=== PATIENT | male | born 1985 | race Caucasian/White ===

== ENCOUNTER 2016-11-28 10:34 | Emergency (ER) | payer OTHER ==
[~2016-11-28] VITALS: Ht 195.6 cm; Wt 112.7 kg
[2016-11-28 10:36] VITALS: TEMP 36.9; Ht 195.6 cm; Wt 112.7 kg
--- NOTE | 2016-11-28 10:56 | EMERGENCY ROOM VISIT NOTE ---
ED Visit Note First contact with patient: 10:48 CHIEF COMPLAINT: knee pain HISTORY OF PRESENT ILLNESS: This 31-year-old male patient presents to the emergency department ambulatory after sustaining an injury to the right knee one week ago when he slipped on the ice and fell. The patient denies any other injuries besides their knee. The patient denies swelling or bruising. There is pain diffusely over the anterior and lateral aspect of the knee. They rate the pain as severe and 10/10. The patient states they are able to walk on it. No numbness or tingling. No previous injuries to this knee. No ankle, foot or hip pain. REVIEW OF SYSTEMS: A 6 system review of systems was completed with positives and pertinent negatives listed in the HPI. ALLERGIES: Nickel MEDICATIONS: Patient denies PMH: Patient denies SOCIAL HISTORY: The patient lives locally. He is a smoker. PHYSICAL EXAM: Vital Signs: Reviewed Nurse's notes, vital signs stable. GENERAL : This is a 31-year-old male, no acute distress, but appears in pain, well- developed, well-nourished. MENTAL STATUS: Alert, oriented to person place and time, and cooperative. MUSCULOSKELETAL: The right knee is not swollen. There is no ecchymosis. There is no joint effusion present. The patient is tender diffusely over the knee. There is no joint line tenderness. The patella does not subluxate. Range of motion is intact. Strength of the quads and hamstrings is 5/5. Leo's is negative. Shemar's and Anterior Drawer tests are painful without laxity. There is pain without laxity with varus and valgus stressing. The foot and toes are warm and well-perfused. Dorsalis pedis pulse 2+. Sensation to pain and light touch is intact. Capillary refill less than 2 seconds. EMERGENCY DEPARTMENT COURSE: I examined the patient. X-rays of the right knee were reviewed by myself and read by radiology and reveal no fracture dislocation. The patient was placed in a knee immobilizer under my direction and the position was satisfactory. The patient was instructed on the use of crutches. The patient was discharged home in good condition. Of note, the patient's spoke separately with the RN and on several occasions stating that she just found out that her has been abusing opioids, crushing pills and snorting them. She states he has been obtaining the pills on the street. When I asked the patient if he is taking anything other than Tylenol or ibuprofen he declines. I recommend anti-inflammatories. I do not feel that prescribing narcotics is appropriate in this situation. DIAGNOSIS: Right knee pain DISCHARGE INSTRUCTIONS: Ice and elevate knee for swelling and pain. Wear knee immobilizer when up and about. Use crutches - minimal weight on foot. Ibuprofen 600 mg every 6 hrs for pain. Follow-up with [facility] for further evaluation and treatment - call for appointment. RIGHT KNEE 3 VIEWS CLINICAL HISTORY: right knee pain Right pain pain. Trauma. COMPARISON: None. DISCUSSION: The bones and joint spaces appear intact. There is no evidence of fracture, dislocation or bony disease. There is no evidence for soft tissue swelling. IMPRESSION: Negative study. Current/Historical Medications No Active Prescriptions or Reported Meds Allergies Coded Allergies: Nickel (Verified Allergy, Unknown, RASH, 11/28/16) Vital Signs Date Time Temp Pulse Resp B/P Pulse Ox O2 Delivery O2 Flow Rate FiO2 11/28/16 12:02 65 18 118/72 99 Room Air 11/28/16 10:36 36.9 89 18 138/87 95 Room Air Departure Information Impression Primary Impression: Knee pain Dispostion Home / Self-Care Condition GOOD Prescriptions No Active Prescriptions or Reported Meds Referrals No Doctor, Assigned (PCP) Clint Roman M.D. Patient Instructions Knee Pain, My [facility] Additional Instructions Ice and elevate knee for swelling and pain. Wear knee immobilizer when up and about. Use crutches - minimal weight on foot. Ibuprofen 600 mg every 6 hrs for pain. Follow-up with [facility] for further evaluation and treatment - call for appointment. Problem Qualifiers Primary Impression: Knee pain Laterality: right Chronicity: acute Qualified Codes: M25.561 - Pain in right knee
--- NOTE | 2016-11-28 11:32 | DIAGNOSTIC IMAGING REPORT ---
RIGHT KNEE 3 VIEWS CLINICAL HISTORY: right knee pain Right pain pain. Trauma. COMPARISON: None. DISCUSSION: The bones and joint spaces appear intact. There is no evidence of fracture, dislocation or bony disease. There is no evidence for soft tissue swelling. IMPRESSION: Negative study. Electronically signed by: Arben Matt M.D. 11/28/2016 11:31 AM Dictated Date/Time: 11/28/2016 11:31 AM
[2016-11-28 12:02] VITALS: BP 118/72; PULSE 65; O2SAT 99
[2016-12-15] MEDS ORDERED: OXYC-88 PO (19:57)
[2016-12-15] MEDS ORDERED: IBUP-1451 PO (19:57)
[2016-12-15] MEDS ORDERED: SNK PO (19:57)
[2016-12-15] MEDS ORDERED: DRGTP25 TD (19:57)
[2016-12-15] MEDS ORDERED: LEVO1TAB35 PO (19:57)
== END 2016-11-28 12:15 | disposition home or self-care (01) ==
LOC: C.EDB 10:35 → C.EDC 12:15
DX: M25.561 Pain in right knee (principal); F17.200 Nicotine dependence, unspecified, uncomplicated

== ENCOUNTER → 2016-11-29 | Outpatient (CLI) | payer OTHER ==
[~2016-11-29] MED LIST: CEPH500C PO; DRGTP25 TD; HYDR-5688 PO; IBUP-1050 PO; IBUP-1451 PO; LEVO1TAB35 PO; NAPR-1169 PO; OXYC-106 PO; OXYC-88 PO; SNK PO
== END | disposition home or self-care (01) ==
LOC: C.LAB 18:14
DX: Z02.83 Encounter for blood-alcohol and blood-drug test (principal)

== ENCOUNTER 2016-12-08 13:53 | Emergency (ER) | payer OTHER ==
[~2016-12-08] VITALS: Ht 195.6 cm; Wt 114.9 kg
[2016-12-08 13:57] VITALS: TEMP 36.9; Ht 195.6 cm; Wt 114.9 kg
[2016-12-08] MEDS ORDERED: HYDROCODONE/ACETAMOPHEN 5/325MG TAB PO ONE (15:00)
[2016-12-08] MEDS ORDERED: DIPHTHERIA/TETANUS/PERTUSSIS 0.5 ML SYR/VIAL IM. ONE (15:00)
--- NOTE | 2016-12-08 15:17 | DIAGNOSTIC IMAGING REPORT ---
RIGHT WRIST MIN 3 VIEWS ROUTINE CLINICAL HISTORY: puncture wound R wrist Right trauma COMPARISON: None. DISCUSSION: The bones and joint spaces appear intact. There is no evidence of fracture, dislocation or bony disease. There is no evidence for soft tissue swelling. IMPRESSION: Negative study. No evidence for radiopaque foreign body Electronically signed by: Arben Matt M.D. 12/08/2016 3:16 PM Dictated Date/Time: 12/08/2016 3:15 PM
[2016-12-08] MEDS ORDERED: HYDR-5688 PO (15:40)
[2016-12-08] MEDS ORDERED: CEPH500C PO (15:40)
[2016-12-08 15:54] VITALS: BP 124/69; PULSE 60; O2SAT 100
--- NOTE | 2016-12-08 17:09 | EMERGENCY ROOM VISIT NOTE ---
ED Visit Note First contact with patient: 14:36 CHIEF COMPLAINT: Puncture wound of the right wrist HISTORY OF PRESENT ILLNESS: This 31-year-old white male patient was taking apart a rabbit cage today and attempted to knock a piece of wood apart by striking it with his palm. There was a screw sticking out of the wood that he did not see. The screw punctured through his leather glove and into the volar aspect of his wrist. Right-hand dominant. He had immediate onset of pain. He notes pain that radiates from the fingers to the mid forearm. No numbness or tingling. The patient doesn't think there is anything in the wound. He believes his tetanus is out of date. He did cleanse the wound with soap and water several times while at home. REVIEW OF SYSTEM: HEENT: No dizziness, visual problems, hearing loss, or tinnitus. There is no difficulty swallowing and no oral lesions are present. PULMONARY: No cough, shortness of breath, sputum production or hemoptysis. CARDIOVASCULAR: No chest pain, palpitations, shortness of breath or peripheral edema. GASTROINTESTINAL: No diarrhea, constipation, nausea, vomiting, or abdominal pain. GENITOURINARY: No dysuria, frequency, urgency or nocturia. NEUROLOGIC: No weakness, muscle tenderness, epilepsy or history of neurological problems. MUSCULOSKELETAL: No history of joint tenderness/swelling. No history of arthritis or arthralgias. SKIN: No rashes or lesions. ENDOCRINE: No history of diabetes, thyroid disorders, or abnormal hair growth. PMH: Significant for bronchitis Previous surgeries: None. Current medications: None Allergies: NKDA Family history: Significant for diabetes, heart disease, hypertension, cancer, lung disease, gallbladder disease, and kidney stones. Parents are living. SOCIAL HISTORY: Patient lives at home with his and children. Employed. Positive tobacco use, positive EtOH use. PHYSICAL EXAM: Vital Signs: Reviewed Nurse's notes. Afebrile. General: Well- developed, well-nourished, young white male, in obvious discomfort. No acute distress. Sitting on a bed. Alert and oriented. Skin: There is a small puncture wound on the volar aspect of the right wrist. No foreign material is seen in the wound. The epidermis was lifted off the puncture site and a small piece of fat was protruding. No foreign material could be seen there. Musculoskeletal: Right hand evaluation reveals full range of motion of the digits for flexion, extension, and abduction. Motor function of all fingers causes some discomfort in the volar aspect of the wrist. He has intact flexion and extension of the wrist but also notes that it causes discomfort. This radiates into the mid forearm. No loss of strength. He has no discoloration or swelling over the dorsal wrist. Neurologic: Gross sensation is intact across all digits by soft touch. Radial, median, and ulnar nerve functions are clearly intact. He describes a slight decrease in sensation across the thumb and index finger compared to the rest of the digits. Peripheral pulses are 2+. Data: Radiographic imaging obtained today of the wrist was read by radiology. No evidence for fracture or foreign body. EMERGENCY DEPARTMENT COURSE: Patient was educated regarding today's findings. Conservative care measures were discussed. Radiographic imaging was obtained. Tetanus immunization was given using Adacel IM. Wound has been cleansed. Bacitracin dressing was applied. Galeano dressing was applied by me with a volar splint. He will leave this in place for 36 hours. Keep it dry. He was started on Keflex 500 mg 4 times a day 7 days. Tylenol and Motrin every 6 hours as needed for mild discomfort. He did receive a tablet of Richmond 5 mg while in the ED due to his pain. Additional prescription was provided to be used every 6 hours as needed for severe pain. Driving precautions were given. DIAGNOSIS: Puncture wound of the right wrist DISCHARGE INSTRUCTIONS: Observe the area closely for signs of infection such as redness, swelling, increasing pain, streaking, or drainage. Return here or go to your own doctor if any of these occur for consideration of IV antibiotic treatment. He was reassured that I do not suspect retained metallic foreign body. Current/Historical Medications Scheduled Cephalexin Monohydrate (Keflex), 500 MG PO QID Scheduled PRN Hydrocodone/Acetaminophen 5MG/325MG (Richmond 5MG/325MG), 1 TABLET PO Q6H PRN for Pain Allergies Coded Allergies: Nickel (Verified Allergy, Unknown, RASH, 12/08/16) Vital Signs Date Time Temp Pulse Resp B/P Pulse Ox O2 Delivery O2 Flow Rate FiO2 12/08/16 15:54 60 18 124/69 100 Room Air 12/08/16 13:57 36.9 80 18 120/77 99 Room Air Medications Administered Medications (Trade) Dose Ordered Sig/Ulises Route Start Time Stop Time Status Last Admin Dose Admin Diphtheria/ Pertussis/Tetanus Vacc (Adacel Inj) 0.5 ml ONCE ONCE IM. 12/08/16 15:00 12/08/16 15:01 DC 12/08/16 15:16 0.5 ML Acetaminophen/ Hydrocodone Bitart (Richmond 5/325 Tab) 1 tab ONE ONCE PO 12/08/16 15:00 12/08/16 15:01 DC 12/08/16 15:15 1 TAB Departure Information Impression Primary Impression: Puncture wound of right wrist without foreign body Dispostion Home / Self-Care Condition GOOD Prescriptions Hydrocodone/Acetaminophen 5MG/325MG (Richmond 5MG/325MG) Tab 1 TABLET PO Q6H Y for Pain, #10 TAB For Initial Treatment Prov: Prakash Murillo,P.A. 12/08/16 Cephalexin Monohydrate (Keflex) 500 Mg Cap 500 MG PO QID for 7 Days, #28 CAP Prov: Prakash Murillo,P.A. 12/08/16 Forms WORK / SCHOOL INSTRUCTIONS, HOME CARE DOCUMENTATION FORM, SPECIAL NARCOTICS INSTRUCTIONS, MOTRIN USE, TYLENOL USE, IMPORTANT VISIT INFORMATION Patient Instructions My [facility], ED Wound Puncture General Additional Instructions Leave the Galeano dressing in place for 36 hours and then remove Keep the splint dry Ice and elevate frequently to reduce pain and swelling Tylenol and Motrin every 6 hours as needed for discomfort Gentle finger motion daily Return to the ED or follow-up with your PCP for any signs of infection, including purulent drainage, streaking on the arm, or fever Keflex one pill 4 times a day 7 days Substituted Richmond one tablet every 6 hours as needed for more severe pain Starting on Friday, cleanse daily with soap and water and keep the area covered with antibiotic ointment
[2016-12-15] MEDS ORDERED: IBUP-1451 PO (19:57)
[2016-12-15] MEDS ORDERED: LEVO1TAB35 PO (19:57)
[2016-12-15] MEDS ORDERED: OXYC-88 PO (19:57)
[2016-12-15] MEDS ORDERED: SNK PO (19:57)
[2016-12-15] MEDS ORDERED: DRGTP25 TD (19:57)
== END 2016-12-08 16:13 | disposition home or self-care (01) ==
LOC: C.EDB 13:54 → C.EDD 16:13
DX: S61.501A Unspecified open wound of right wrist, initial encounter (principal); W22.8XXA Striking against or struck by other objects, initial encounter; F17.200 Nicotine dependence, unspecified, uncomplicated; Z23 Encounter for immunization

== ENCOUNTER 2016-12-09 17:26 | Inpatient (IN) | payer OTHER ==
[~2016-12-09] VITALS: Ht 195.6 cm; Wt 115.0 kg
[~2016-12-09 17:26] MED LIST changes: -DRGTP25 TD; -IBUP-1050 PO; -IBUP-1451 PO; -LEVO1TAB35 PO; -NAPR-1169 PO; -OXYC-106 PO; -OXYC-88 PO; -SNK PO
[2016-12-09] MEDS ORDERED: CEFTRIAXONE SOD INJ 1 GM ADDVIAL IV STA (18:42)
[2016-12-09] MEDS ORDERED: VANCOMYCIN INJ 2,200 MG in SODIUM CHLORIDE 0.9% 250ML 250 ML IV STA (18:42)
[2016-12-09] MEDS ORDERED: VANCOMYCIN INJ 2,200 MG in SODIUM CHLORIDE 0.9% 500ML 500 ML IV ONE (19:00)
[2016-12-09 19:05] LABS: BASO % 0.2 %; BASO ABS # 0.02 K/uL (0-0.2); COMPLETE YES; EOS % 2.5 %; HEMATOCRIT 42.6 % (42-52); IG% 0.3 %; LYMPH % 24.5 %; LYMPH ABS # 3.25 K/uL (1.2-3.4); MEAN CELL VOLUME 85.7 fL (80-100); MEAN PLATELET VOLUME 10.9 fL (7.4-10.4); MONO % 11.2 %; NEUT % 61.3 %; PLATELET COUNT 177 K/uL (130-400); RED BLOOD COUNT 4.97 M/uL (4.7-6.1); WHITE BLOOD COUNT 13.26 K/uL (4.8-10.8)
[2016-12-09 19:32] LABS: BUN/CREATININE RATIO 15.9 (10-20); CALCIUM 8.8 mg/dl (8.5-10.1); CREATININE 1.1 mg/dl (0.60-1.40); POTASSIUM 3.9 mmol/L (3.5-5.1)
[2016-12-09] MEDS ORDERED: MoRPHine SULFATE 10 MG/ML CARP/VIAL IV STA (19:53)
[2016-12-09] MEDS ORDERED: MoRPHine SULFATE 4 MG/ML 1 ML CARP\\VIAL ONE (20:01)
[2016-12-09] MEDS ORDERED: MoRPHine SULFATE 2 MG/ML CARP ONE (20:01)
[2016-12-09] MEDS ORDERED: MoRPHine SULFATE 2 MG/ML CARP IV PRN (21:00)
[2016-12-09] MEDS ORDERED: ONDANSETRON INJ 2 MG/ML 2 ML VIAL IV PRN (21:00)
[2016-12-09] MEDS ORDERED: ACETAMINOPHEN 325 MG TAB PO PRN (21:00)
[2016-12-09] MEDS ORDERED: LORAZEPAM 2 MG/ML 1 ML VIAL IV PRN (21:00)
[2016-12-09] MEDS ORDERED: CEFTRIAXONE SOD INJ 1 GM in DEXTROSE 5% ADD-VANTAGE 50ML 50 ML IV SCH (21:00)
[2016-12-09] MEDS ORDERED: PROMETHAZINE HCL INJ 12.5 MG in SODIUM CHLORIDE 0.9% 50ML 50 ML IV PRN (21:00)
[2016-12-09] MEDS ORDERED: MAGNESIUM HYDROXIDE SUSP 30 ML UDC PO PRN (21:00)
[2016-12-09] MEDS ORDERED: DiphenhydrAMINE HCL 50 MG/ML VIAL IV PRN (21:00)
[2016-12-09] MEDS ORDERED: ZOLPIDEM TARTRATE 5 MG TAB PO PRN (21:00)
[2016-12-09] MEDS ORDERED: ALUMINUM/MAGNESIUM/SIMETH (MAALOX MAX) 30 ML UDC PO PRN (21:00)
[2016-12-09] MEDS ORDERED: VANCOMYCIN CONSULT ACTIVE PRN (21:27)
[2016-12-09] MEDS ORDERED: PIPERACILL/TAZOBAC IV 3.375 GM in DEXTROSE 5% 100ML 100 ML IV STA (22:12)
[2016-12-09] MEDS: NSS + 20MEQ KCL 1000ML 1,000 ML IV SCH (22:31)
[2016-12-09] MEDS: MoRPHine SULFATE 4 MG/ML 1 ML CARP\\VIAL IV PRN (22:33)
[2016-12-09] MEDS ORDERED: PIPERACILL/TAZOBAC CONSULT ACTIVE PRN (22:45)
--- NOTE | 2016-12-09 22:47 | EMERGENCY ROOM VISIT NOTE ---
History Report prepared by Alphonso: Narayan Martin Under the Supervision of: Dr. Lg Biggs M.D. First contact with patient: 18:33 Chief Complaint: WOUND INFECTION Stated Complaint: PUNCTURE RT WRIST, RED, SWOLLEN, FEVER Nursing Triage Summary: Here for wound recheck that ot worse, patient reports severe pain in his hand and fingers with reddness runnig up his inside of his wrist. History of Present Illness The patient is a 31 year old male who presents to the Emergency Room with complaints of severe right wrist pain starting yesterday and worsening today. Yesterday, the patient was taking apart an old board when he hit it with his hand and a metal screw sunk into his hand. He does not think any wood entered the wound. He was evaluated at the Emergency Room yesterday. He had an x-ray yesterday which did not show any metal in the wound. He was placed on Keflex and was discharged home. His last tetanus shot was yesterday. Today, the patient starting having redness on the right arm. He has worsening pain with movement. He also started having a fever with a temperature of 102 degrees Fahrenheit today. The patient has been taking Aleve and Ibuprofen without relief. Pt denies headache, change in vision, cough, chest pain, shortness of breath, nausea, vomiting, diarrhea, pain with urination, and melena. Source of History: patient Onset: yesterday Position: wrist (right) Symptom Intensity: severe Modifying Factors (Worsening): movement Associated Symptoms: + fevers, No SOB, No chest pain, No diarrhea, No headache, No nausea, No urinary symptoms, No vomiting Review of Systems See HPI for pertinent positives & negatives. A total of 10 systems reviewed and were otherwise negative. Past Medical & Surgical Medical Problems: (1) Acute lymphangitis (2) Anxiety State Nos (3) Cellulitis of right upper extremity (4) Tobacco use disorder Surgical Problems: (1) No history of previous surgery Family History Cancer Diabetes mellitus Gallbladder disease Heart disease Hypertension Lung disease Social History Smoking Status: Never Smoker Alcohol Use: none Marital Status: Occupation Status: employed Current/Historical Medications Scheduled Cephalexin Monohydrate (Keflex), 500 MG PO QID Scheduled PRN Hydrocodone/Acetaminophen 5MG/325MG (Badger 5MG/325MG), 1 TABLET PO Q6H PRN for Pain Allergies Coded Allergies: Nickel (Verified Allergy, Unknown, RASH, 12/08/16) Physical Exam Vital Signs Date Time Temp Pulse Resp B/P Pulse Ox O2 Delivery O2 Flow Rate FiO2 12/09/16 20:11 79 18 135/86 97 Room Air 12/09/16 19:15 76 18 134/75 97 Room Air 12/09/16 17:46 37.2 94 18 146/87 98 Room Air Physical Exam GENERAL: Sitting on the edge of bed, disheveled, nontoxic. EYE EXAM: normal conjunctiva, PERRL and EOM's grossly intact OROPHARYNX: no exudate, no erythema, lips, buccal mucosa, and tongue normal and mucous membranes are moist LUNGS: Clear to auscultation. Normal chest wall mechanics HEART: no murmurs, S1 normal and S2 normal ABDOMEN: abdomen soft, non-tender, normo-active bowel sounds, no masses, no rebound or guarding. BACK: Back is symmetrical on inspection and there is no deformity, no midline tenderness, no CVA tenderness. SKIN: no rashes and no bruising UPPER EXTREMITIES: Puncture wounds in the middle of right wrist on the palmar surface measuring 1 cm by 1 cm and surrounding 9 cm area of erythema tracking up the arm, moderate tenderness, radial pulses are 2/4 bilaterally, acute tenderness/swelling on the dorsal aspect of fifth metacarpal. Faint erythema tracking up to just distal of elbow. LOWER EXTREMITIES: No pitting edema. NEURO EXAM: Normal sensorium. Medical Decision & Procedures Laboratory Results 12/09/16 18:54 Red Blood Count 4.97, Mean Corpuscular Volume 85.7, Mean Corpuscular Hemoglobin 30.0, Mean Corpuscular Hemoglobin Concent 35.0, Mean Platelet Volume 10.9, Neutrophils (%) (Auto) 61.3, Lymphocytes (%) (Auto) 24.5, Monocytes (%) (Auto) 11.2, Eosinophils (%) (Auto) 2.5, Basophils (%) (Auto) 0.2, Neutrophils # (Auto ) 8.13, Lymphocytes # (Auto) 3.25, Monocytes # (Auto) 1.49, Eosinophils # (Auto ) 0.33, Basophils # (Auto) 0.02 12/09/16 18:54 Test 12/09/16 18:54 White Blood Count 13.26 K/uL (4.8-10.8) Red Blood Count 4.97 M/uL (4.7-6.1) Hemoglobin 14.9 g/dL (14.0-18.0) Hematocrit 42.6 % (42-52) Mean Corpuscular Volume 85.7 fL (80-100) Mean Corpuscular Hemoglobin 30.0 pg (25-34) Mean Corpuscular Hemoglobin Concent 35.0 g/dl (32-36) Platelet Count 177 K/uL (130-400) Mean Platelet Volume 10.9 fL (7.4-10.4) Neutrophils (%) (Auto) 61.3 % Lymphocytes (%) (Auto) 24.5 % Monocytes (%) (Auto) 11.2 % Eosinophils (%) (Auto) 2.5 % Basophils (%) (Auto) 0.2 % Neutrophils # (Auto) 8.13 K/uL (1.4-6.5) Lymphocytes # (Auto) 3.25 K/uL (1.2-3.4) Monocytes # (Auto) 1.49 K/uL (0.11-0.59) Eosinophils # (Auto) 0.33 K/uL (0-0.5) Basophils # (Auto) 0.02 K/uL (0-0.2) RDW Standard Deviation 42.9 fL (36.4-46.3) RDW Coefficient of Variation 13.7 % (11.5-14.5) Immature Granulocyte % (Auto) 0.3 % Immature Granulocyte # (Auto) 0.04 K/uL (0.00-0.02) Anion Gap 12.0 mmol/L (3-11) Est Creatinine Clear Calc Drug Dose 139.4 ml/min Estimated GFR () 104.6 Estimated GFR (Non- 90.2 BUN/Creatinine Ratio 15.9 (10-20) Calcium Level 8.8 mg/dl (8.5-10.1) Laboratory results per my review. Medications Administered Medications (Trade) Dose Ordered Sig/Luises Route Start Time Stop Time Status Last Admin Dose Admin Ceftriaxone Sodium 1 gm 1 gm NOW STAT IV 12/09/16 18:42 12/09/16 18:44 DC 12/09/16 19:07 1 GM Vancomycin HCl/ Sodium Chloride (Vancomycin Inj/ Nss 500ml) 544 ml @ 200 mls/hr 1900 ONCE IV 2/20/17 19:00 12/09/16 21:43 DC 12/09/16 19:07 200 MLS/HR Morphine Sulfate (MoRPHine SULFATE INJ) 2 mg STK-MED ONCE .ROUTE 12/09/16 20:01 12/09/16 20:03 DC 12/09/16 20:06 2 MG Morphine Sulfate (MoRPHine SULFATE INJ) 4 mg STK-MED ONCE .ROUTE 12/09/16 20:01 12/09/16 20:03 DC 12/09/16 20:05 4 MG ED Course ED COURSE: Vital signs were reviewed and showed normal. The patients medical record was reviewed The above diagnostic studies were performed and reviewed. ED treatments and interventions as stated above. 1833: The patient was evaluated in room A10. A complete history and physical examination was performed. 184: Rocephin Inj 1 gm IV 1900: Vancomycin HCl 2200 mg/Sodium Chloride 544 ml @ 200 mls/hr IV 2019: [facility] the [facility] Upon reevaluation, the patient is resting comfortably. I discussed my findings with the patient and he understands and agrees with the treatment plan. Based on the patients age, coexisting illnesses, exam and lab findings the decision to treat as an inpatient was made. The patient remained stable while under my care. The patient will be evaluated for further management. Medical Decision Differential diagnosis: Etiologies such as cellulitis, abscess, MRSA infection, DVT, necrotizing fasciitis, dermatitis, drug eruption, as well as others were entertained. Patient is a 31-year-old male who presents the ER for severe pain in his right hand. He is right-handed dominant and he hit his wrist on a nail yesterday. Since then he has been having severe pain and increased swelling. He has been on antibiotics. Significant pain with flexion-extension of the wrist. He also has moderate pain with grasp. Erythema tracking along the flexor tendon sheath proximally with faint erythema going to the mid to proximal forearm. Patient has had fevers of 102 at home. He is currently on antibiotics. IV was established and is given additional antibiotics along with fluids. He was given IV morphine with improvement of his pain. He is admitted to internal medicine for IV antibiotics and evaluation by orthopedics in the morning. Labs were remarkable for a leukocytosis of 13,000. Consults Time Called: 2014 Consulting Physician[facility] Returned Call: 2018 I discussed the patient's case [facility] Impression Primary Impression: Cellulitis Additional Impression: Infection of flexor tendon sheath Scribe Attestation The scribe's documentation has been prepared under my direction and personally reviewed by me in its entirety. I confirm that the note above accurately reflects all work, treatment, procedures, and medical decision making performed by me. Departure Information Dispostion Being Evaluated By Hospitalist Referrals Jose Francisco Ramirez M.D. (PCP) Patient Instructions My [facility] Problem Qualifiers Primary Impression: Cellulitis Site of cellulitis: extremity Site of cellulitis of extremity: upper extremity Laterality: right Qualified Codes: L03.113 - Cellulitis of right upper limb
[2016-12-09 23:07] VITALS: BP 110/64; PULSE 67; TEMP 36.8; O2SAT 98
[2016-12-09 23:21] VITALS: BP 114/74; PULSE 74; TEMP 37.1; Ht 195.6 cm; Wt 115.0 kg
[2016-12-10] MEDS: MoRPHine SULFATE 4 MG/ML 1 ML CARP\\VIAL IV PRN ×5 (01:22→23:09)
[2016-12-10] MEDS: VANCOMYCIN INJ 1,600 MG in SODIUM CHLORIDE 0.9% 500ML 500 ML IV SCH ×3 (01:22→18:28)
--- NOTE | 2016-12-10 01:43 | History and Physical ---
History & Physical Date & Time of Service: Dec 10, 2016 at 01:35 Chief Complaint: Puncture Rt Wrist, Red, Swollen, Fever Primary Care Physician: Jose Francisco Ramirez M.D. History of Present Illness Source: patient, spouse The patient is a 31-year-old male who presents emergency department with worsening severe right wrist pain and swelling since he was seen at the emergency department yesterday. He had sustained a puncture wound injury to his right wrist from a old screw. He had been given a tetanus shot yesterday and had an x-ray which did not show any metal in the wound. He is placed on Keflex and discharged to home. He did develop temperature to 102F today, in spite of taking Aleve and ibuprofen. He has started develop some generalized muscle aches and fatigue today as well. Family History Cancer Diabetes mellitus Gallbladder disease Heart disease Hypertension Lung disease Social History Smoking Status: Current Every Day Smoker Smokeless Tobacco Use: No Alcohol Use: none Drug Use: none Marital Status: Housing status: lives with family Occupational Status: employed Multi-Drug Resistant Organisms History of MDRO: No Allergies Coded Allergies: Nickel (Verified Allergy, Unknown, RASH, 12/08/16) Home Medications Scheduled Cephalexin Monohydrate (Keflex), 500 MG PO QID Scheduled PRN Hydrocodone/Acetaminophen 5MG/325MG ([place] 5MG/325MG), 1 TABLET PO Q6H PRN for Pain Review of Systems The patient denies chest pain, palpitations, shortness of breath, cough, lower extremity swelling, vision change, hearing change, sore throat, weight change, fatigue, nausea, vomiting, abdominal pain, pelvic pain, blood in urine or stool , dysuria, urinary frequency or urgency, lightheadedness, dizziness, headache, memory loss, rash, abnormal bruising or bleeding, imbalance, numbness or tingling in legs, arthralgias or myalgias, back or neck pain, night sweats, or allergy symptoms. The review of systems is otherwise negative other than for that already noted above, and at least 10 systems have been reviewed. Physical Exam Vital Signs Date Time Temp Pulse Resp B/P Pulse Ox O2 Delivery O2 Flow Rate FiO2 12/09/16 23:21 37.1 74 16 114/74 Room Air 12/09/16 23:07 36.8 67 14 110/64 98 Room Air 12/09/16 21:53 37.2 84 18 131/85 97 12/09/16 21:20 84 18 131/85 97 Room Air 12/09/16 20:11 79 18 135/86 97 Room Air 12/09/16 19:15 76 18 134/75 97 Room Air 12/09/16 17:46 37.2 94 18 146/87 98 Room Air The patient is awake, well-developed and adequately nourished, alert and oriented 3, normocephalic and atraumatic, lying in bed and in no acute distress. HEENT--PERRL, EOMI, mucous membranes and oropharynx dry. Neck--supple, no JVD or bruits, thyroid normal, trachea midline, no adenopathy. Heart--normal S1 and S2, no extra beats, no murmurs, rubs or gallops. Lungs--clear bilaterally with good air movement, no respiratory distress, no accessory muscle use. Abdomen--normal bowel sounds and soft, nontender and nondistended, no hernias or masses, no organomegaly. Extremities--lower extremities show no cyanosis, clubbing or edema. There are good distal pulses b/l. Right upper extremity shows puncture wound palmaris surface of wrist, with surrounding erythema and warmth, and redness extending along medial aspect of the forearm to the elbow. Dermatologic--normal except as noted above. Neurologic--cranial nerves II through XII grossly intact, motor and sensory examination normal. Rheumatologic--right wrist is swollen with decreased flexion ability. Psychiatric--normal affect. Diagnostics Laboratory Results Results Past 24 Hours Test 12/09/16 18:54 Range/Units White Blood Count 13.26 4.8-10.8 K/uL Red Blood Count 4.97 4.7-6.1 M/uL Hemoglobin 14.9 14.0-18.0 g/dL Hematocrit 42.6 42-52 % Mean Corpuscular Volume 85.7 80-100 fL Mean Corpuscular Hemoglobin 30.0 25-34 pg Mean Corpuscular Hemoglobin Concent 35.0 32-36 g/dl Platelet Count 177 130-400 K/uL Mean Platelet Volume 10.9 7.4-10.4 fL Neutrophils (%) (Auto) 61.3 % Lymphocytes (%) (Auto) 24.5 % Monocytes (%) (Auto) 11.2 % Eosinophils (%) (Auto) 2.5 % Basophils (%) (Auto) 0.2 % Neutrophils # (Auto) 8.13 1.4-6.5 K/uL Lymphocytes # (Auto) 3.25 1.2-3.4 K/uL Monocytes # (Auto) 1.49 0.11-0.59 K/uL Eosinophils # (Auto) 0.33 0-0.5 K/uL Basophils # (Auto) 0.02 0-0.2 K/uL RDW Standard Deviation 42.9 36.4-46.3 fL RDW Coefficient of Variation 13.7 11.5-14.5 % Immature Granulocyte % (Auto) 0.3 % Immature Granulocyte # (Auto) 0.04 0.00-0.02 K/uL Sodium Level 141 136-145 mmol/L Potassium Level 3.9 3.5-5.1 mmol/L Chloride Level 107 98-107 mmol/L Carbon Dioxide Level 22 21-32 mmol/L Anion Gap 12.0 3-11 mmol/L Blood Urea Nitrogen 18 7-18 mg/dl Creatinine 1.10 0.60-1.40 mg/dl Est Creatinine Clear Calc Drug Dose 139.4 ml/min Estimated GFR () 104.6 Estimated GFR (Non- 90.2 BUN/Creatinine Ratio 15.9 10-20 Random Glucose 85 70-99 mg/dl Calcium Level 8.8 8.5-10.1 mg/dl Diagnostic Radiology Patient Name: LEIF CONNELL Unit Number: [id number] Dictated: 12/08/161514 Transcribed: 12/08/161514 MS Printed Date/Time: [~ rep prt dt]/[~ rep prt tm] [~ rep ct labl] - [~ rep ct ivnm] [facility] [place] [address] Dictated: 12/08/161514 Transcribed: 12/08/161514 MS Printed Date/Time: [~ rep prt dt]/[~ rep prt tm] [~ rep ct labl] - [~ rep ct ivnm] RIGHT WRIST MIN 3 VIEWS ROUTINE CLINICAL HISTORY: puncture wound R wrist Right trauma COMPARISON: None. DISCUSSION: The bones and joint spaces appear intact. There is no evidence of fracture, dislocation or bony disease. There is no evidence for soft tissue swelling. IMPRESSION: Negative study. No evidence for radiopaque foreign body Electronically signed by: Arben Matt M.D. 12/08/2016 3:16 PM Dictated Date/Time: 12/08/2016 3:15 PM The status of this report is Signed. Draft = Not yet reviewed or approved by Radiologist. Signed = Reviewed and approved by Radiologist. <AttendingPhy></AttendingPhy> <FamilyPhy>Jose Francisco Ramirez M.D.</FamilyPhy> < PrimaryPhy>Jose Francisco Ramirez M.D.</PrimaryPhy> <UnitNumber>[id number]</UnitNumber > <VisitNumber>[id number]</VisitNumber> <PatientName>LEIF CONNELL REY</ PatientName> <DateOfBirth>1985</DateOfBirth> <Location>[facility]</Location> < ServiceDate>12/08/16</ServiceDate> <MNE>ESINDI</MNE> <OrderingPhy>Murillo Cory D PA-C</OrderingPhy> <OrderingPhyMNE>f rep ord dr pina</OrderingPhyMNE> < DictatingPhyMNE>f rep dict dr pina</DictatingPhyMNE> <CCListMNE>f rep ct yovani</ CCListMNE> <AdmittingPhyMNE>f pt admit dr pina</AdmittingPhyMNE> <AttendingPhyMNE >f pt attend dr pina</AttendingPhyMNE> <ConsultingPhyMNE>f pt consult dr pina</ConsultingPhyMNE> <FamilyPhyMNE>f pt fam dr pina</FamilyPhyMNE> <OtherPhyMNE>f pt other dr pina</OtherPhyMNE> < PrimaryPhyMNE>f pt prim care dr pina</PrimaryPhyMNE> <ReferringPhyMNE>f pt referring dr pina</ReferringPhyMNE> Impression Assessment and Plan Right wrist cellulitis with ascending lymphangitis status post puncture wound with old metal screw--the patient will be admitted to the medical surgical floor. He'll be placed on vancomycin IV per renal dosing, and Zosyn 3.375 mg IV every [address] consult [address]. Grider from [facility], and the patient will be kept nothing by mouth after midnight in case a procedure is needed tomorrow. We'll continue hydrocodone/acetaminophen 5/325, 1 tablet by mouth every [address] on normal saline with potassium chloride 20 mEq 100 mils per hour. Zofran 4 mg IV every 6 hours when necessary , and morphine sulfate 2-4 mg IV every 2 hours when necessary. His right arm should be kept elevated to heart level to prevent edema. Level of Care Med/Surg Advanced Directives Existing Advance Directive: No Existing Living Will: No Existing Power of Automatic Developer: No Resuscitation Status FULL RESUSCITATION VTE Prophylaxis VTE Risk Assessment Done? Y/N: Yes Risk Level: Moderate Given or contraindicated: SCD's Social Service Consult None Apply
[2016-12-10] MEDS: PIPERACILL/TAZOBAC IV 3.375 GM in DEXTROSE 5% 100ML IV SCH ×3 (04:39→23:27)
[2016-12-10 07:35] LABS: BASO % 0.2 %; BASO ABS # 0.02 K/uL (0-0.2); COMPLETE YES; EOS % 3.3 %; HEMATOCRIT 38.9 % (42-52); IG% 0.3 %; LYMPH % 21.3 %; LYMPH ABS # 2.04 K/uL (1.2-3.4); MEAN CELL VOLUME 89.2 fL (80-100); MEAN CORPUSCULAR HEMOGLOBIN 30.3 pg (25-34); MEAN CORPUSCULAR HGB CONC 33.9 g/dl (32-36); MEAN PLATELET VOLUME 11.3 fL (7.4-10.4); MONO % 12.3 %; NEUT % 62.6 %; PLATELET COUNT 148 K/uL (130-400); RED BLOOD COUNT 4.36 M/uL (4.7-6.1)
[2016-12-10 07:53] VITALS: BP 112/71; PULSE 74; TEMP 36.7; O2SAT 100
[2016-12-10 08:04] LABS: BUN/CREATININE RATIO 11.2 (10-20); CALCIUM 8.4 mg/dl (8.5-10.1); CREATININE 0.94 mg/dl (0.60-1.40); MAGNESIUM 2.1 mg/dl (1.8-2.4); POTASSIUM 4.4 mmol/L (3.5-5.1)
[2016-12-10] MEDS: NSS + 20MEQ KCL 1000ML 1,000 ML IV SCH ×2 (08:09→18:29)
--- NOTE | 2016-12-10 09:21 | Pharmacy Progress Note ---
Pharmacy Antibiotic Consult Date of Service: Dec 10, 2016. Pharmacy Dosing Scope Pharmacy is consulted to initiate vancomycin and piperacillin/tazobactam IV dosing therapy, order appropriate labs and adjust drug dose/frequency. Subjective The patient is a 31 year old male admitted on Dec 09, 2016 at 20:48 for a right wrist infection s/p puncture wound from an old nail/screw. The patient was seen in the ED on 12/09 and prescribed Keflex, however he continued to have fevers. Objective Height (Feet): 6 Height (Inches): 5.00 Weight (Kilograms): 115.000 Lab Results (24hrs): Laboratory Tests Test 12/09/16 18:54 12/10/16 07:07 BUN/Creatinine Ratio 15.9 11.2 Blood Urea Nitrogen 18 mg/dl 11 mg/dl Creatinine 1.10 mg/dl 0.94 mg/dl White Blood Count 13.26 K/uL 9.60 K/uL Red Blood Count 4.97 M/uL 4.36 M/uL Hemoglobin 14.9 g/dL 13.2 g/dL Hematocrit 42.6 % 38.9 % Mean Corpuscular Volume 85.7 fL 89.2 fL Mean Corpuscular Hemoglobin 30.0 pg 30.3 pg Mean Corpuscular Hemoglobin Concent 35.0 g/dl 33.9 g/dl Platelet Count 177 K/uL 148 K/uL Mean Platelet Volume 10.9 fL 11.3 fL Neutrophils (%) (Auto) 61.3 % 62.6 % Lymphocytes (%) (Auto) 24.5 % 21.3 % Monocytes (%) (Auto) 11.2 % 12.3 % Eosinophils (%) (Auto) 2.5 % 3.3 % Basophils (%) (Auto) 0.2 % 0.2 % Neutrophils # (Auto) 8.13 K/uL 6.01 K/uL Lymphocytes # (Auto) 3.25 K/uL 2.04 K/uL Monocytes # (Auto) 1.49 K/uL 1.18 K/uL Eosinophils # (Auto) 0.33 K/uL 0.32 K/uL Basophils # (Auto) 0.02 K/uL 0.02 K/uL Recent Pertinent Medications Item Value Date Time Ceftriaxone Sodium 1 gm 12/09/161841 (Rocephin Inj) NOW STAT/IV ONE TIME DOSE IN ED 12/09/16 5648 Assessment & Plan Assessment: * 31 y/o male with right wrist cellulitis/lymphangitis that persisted despite Keflex therapy * only on Keflex for short time, may not be treatment failure * Ceftriaxone 1g IV x1 given in ED prior to admission Plan: * Begin broad-spectrum ABX in the form of vancomycin and piperacillin/tazobactam Vancomycin: * Loading dose: 2200 mg IV X 1 dose * Maintenance dose: 1600 mg IV every 8 hours * Trough level 12/10 prior to 18:00 dose * Goal ~15mcg/mL * will cover MRSA that Keflex was previously missing Piperacillin/tazobactam: * Loading dose: 3.375 g IV x1 dose (infused over 30 minutes) * Maintenance dose: 3.375 g IV every 8 hours (infused over 4 hours) * No dose adjustment needed for CrCl above 20mL/min May consider: * De-escalation of piperacillin/tazobactam to ampicillin/sulbactam (may not need pseudomonal coverage) * De-escalation of piperacillin/tazobactam to ceftriaxone (may not need pseudomonal or anaerobic coverage) Pharmacy will continue to follow and will adjust dose/frequency as necessary. Thank you
--- NOTE | 2016-12-10 10:18 | Progress Note ---
Subjective Date of Service: Dec 10, 2016. Subjective Pt evaluation today including: conversation w/ patient, conversation w/ family , physical exam, chart review, lab review, review of studies, review of inpatient medication list Voiding: no voiding problems Reported more obvious pain in right wrist area radiation to the finger and home , more red/ swelling in the punch wound area, Last bowel movement was yesterday, has good urination, Problem List Medical Problems: (1) Cellulitis Status: Acute (2) Infection of flexor tendon sheath Status: Acute (3) Knee pain Status: Acute (4) Puncture wound of right wrist without foreign body Status: Acute Review of Systems Constitutional: No chills, No fatigue, No fever, No problem reported, No sweats , No weakness, No weight loss Eyes: No diplopia, No discharge, No eye pain, No redness, No worsening of vision ENT: No dental problems, No hearing loss, No nasal symptoms, No sore throat, No tinnitus, No trouble swallowing, No unusual epistaxis Respiratory: No cough, No dyspnea at rest, No dyspnea on exertion, No hemoptysis, No shortness of breath, No sputum, No wheezing Cardiac: No PND, No chest pain, No claudication, No edema, No orthopnea, No palpitations Abdomen: No constipation, No diarrhea, No nausea, No pain, No vomiting Musculoskeletal: + joint pain, + muscle pain, + see HPI, + swelling, No calf pain Male : No dysuria, No hematuria, No incontinence, No nocturia more than once/ night, No slowing stream, No urinary frequency Neurologic: No balance problems, No memory loss, No numbness/tingling, No paralysis, No vertigo, No weakness Psychiatric: No anhedonism, No anxiety, No depression symptoms, No insomnia, No substance abuse Heme: No abnormal bleeding/bruising, No clotting problems, No night sweats, No swollen lymph nodes Endo: No excessive thirst, No excessive urination, No fatigue Skin: No bleeding, No color change, No itch, No new/changing skin lesions, No rash Objective Vital Signs Date Time Temp Pulse Resp B/P Pulse Ox O2 Delivery O2 Flow Rate FiO2 12/10/16 07:56 Room Air 12/10/16 07:53 36.7 74 18 112/71 100 Room Air 12/10/16 00:15 Room Air 12/09/16 23:21 37.1 74 16 114/74 Room Air 12/09/16 23:07 36.8 67 14 110/64 98 Room Air 12/09/16 21:53 37.2 84 18 131/85 97 12/09/16 21:20 84 18 131/85 97 Room Air 12/09/16 20:11 79 18 135/86 97 Room Air 12/09/16 19:15 76 18 134/75 97 Room Air 12/09/16 17:46 37.2 94 18 146/87 98 Room Air Physical Exam General Appearance: WD/WN, no apparent distress, + obese Eyes: normal inspection, PERRL, EOMI, sclerae normal ENT: normal ENT inspection, hearing grossly normal, pharynx normal Neck: supple, no adenopathy, thyroid normal, no JVD, no carotid bruits, trachea midline Respiratory/Chest: chest non-tender, lungs clear, normal breath sounds, no respiratory distress, no accessory muscle use Cardiovascular: regular rate, rhythm, no edema, no gallop, no JVD, no murmur Abdomen: normal bowel sounds, non tender, soft, no organomegaly, no pulsatile mass Extremities: normal range of motion, non-tender, normal inspection, no pedal edema, no calf tenderness, normal capillary refill, pelvis stable Neurologic/Psychiatric: fur dry cleaner II-XII nml as tested, no motor/sensory deficits, alert, normal mood/affect, oriented x 3 Skin: normal color, warm/dry, no rash, + pertinent finding (right ventral wrist tehre is punch wound opening, no drainage, its surrounding area is edema swelling and tender, all fingers not able to have a full extension consult pain, however cap Refill and color in the tip of the fingers and whole hand has no changes) Lymphatic: no adenopathy Laboratory Results Last 24 Hours Test 12/09/16 18:54 12/10/16 07:07 White Blood Count 13.26 K/uL 9.60 K/uL Red Blood Count 4.97 M/uL 4.36 M/uL Hemoglobin 14.9 g/dL 13.2 g/dL Hematocrit 42.6 % 38.9 % Mean Corpuscular Volume 85.7 fL 89.2 fL Mean Corpuscular Hemoglobin 30.0 pg 30.3 pg Mean Corpuscular Hemoglobin Concent 35.0 g/dl 33.9 g/dl Platelet Count 177 K/uL 148 K/uL Mean Platelet Volume 10.9 fL 11.3 fL Neutrophils (%) (Auto) 61.3 % 62.6 % Lymphocytes (%) (Auto) 24.5 % 21.3 % Monocytes (%) (Auto) 11.2 % 12.3 % Eosinophils (%) (Auto) 2.5 % 3.3 % Basophils (%) (Auto) 0.2 % 0.2 % Neutrophils # (Auto) 8.13 K/uL 6.01 K/uL Lymphocytes # (Auto) 3.25 K/uL 2.04 K/uL Monocytes # (Auto) 1.49 K/uL 1.18 K/uL Eosinophils # (Auto) 0.33 K/uL 0.32 K/uL Basophils # (Auto) 0.02 K/uL 0.02 K/uL RDW Standard Deviation 42.9 fL 45.8 fL RDW Coefficient of Variation 13.7 % 13.9 % Immature Granulocyte % (Auto) 0.3 % 0.3 % Immature Granulocyte # (Auto) 0.04 K/uL 0.03 K/uL Sodium Level 141 mmol/L 143 mmol/L Potassium Level 3.9 mmol/L 4.4 mmol/L Chloride Level 107 mmol/L 110 mmol/L Carbon Dioxide Level 22 mmol/L 23 mmol/L Anion Gap 12.0 mmol/L 10.0 mmol/L Blood Urea Nitrogen 18 mg/dl 11 mg/dl Creatinine 1.10 mg/dl 0.94 mg/dl Est Creatinine Clear Calc Drug Dose 139.4 ml/min 163.1 ml/min Estimated GFR () 104.6 126.5 Estimated GFR (Non- 90.2 109.1 BUN/Creatinine Ratio 15.9 11.2 Random Glucose 85 mg/dl 102 mg/dl Calcium Level 8.8 mg/dl 8.4 mg/dl Magnesium Level 2.1 mg/dl Assessment and Plan 31-year-old white male admitted on 12/09/2016 because of severe cellulitis Right wrist cellulitis with ascending lymphangitis status post puncture wound with old metal screw No significant improving, possible mole pain, Will have orthopedic doctor to see patient as soon as possible, Increase the dose of morphine 4 mg to 5 mg, Continue on vancomycin/zosyn, infectious disease consultation Tobacco abuse disorder, counseling quit smoking, I'll give nicotine patch DVT prophylaxis, Discussed with patient and family answered all the questions Continued [facility] stay due to: multiple IV medications needed Discharge planning: home
--- NOTE | 2016-12-10 10:29 | Medical Consult ---
Consultation Date of Consultation: Dec 10, 2016. Attending Physician: Jason Castillo M.D. Reason for Consultation: Severe cellulitis History of Present Illness 31-year-old male in good health suffered a puncture wound to his right wrist from a yudelka screw from a rabbit cage days ago. Was seen in the emergency department, x-ray, also read by me, was unrevealing, and patient was discharged home on cephalexin. However, he subsequently developed temperature to 102 degrees, with rapidly progressive swelling and redness of his wrists with tracking up his right arm. He returned to the emergency room and was admitted, and has been started on IV vancomycin and Zosyn. No cultures have been taken as of yet. Patient has noted some spread of erythema overnight, but wrist is less swollen. Pain currently 4/10 in intensity. Has been tolerating his antibiotics without apparent difficulty. Past Medical/Surgical History Medical Problems: (1) Cellulitis Status: Acute (2) Infection of flexor tendon sheath Status: Acute (3) Knee pain Status: Acute (4) Puncture wound of right wrist without foreign body Status: Acute Medical Problems: (1) Acute lymphangitis (2) Anxiety State Nos (3) Cellulitis of right upper extremity (4) Tobacco use disorder Surgical Problems: (1) No history of previous surgery Family History Cancer Diabetes mellitus Gallbladder disease Heart disease Hypertension Lung disease Social History Smoking Status: Current Every Day Smoker Smokeless Tobacco Use: No Alcohol Use: none Drug Use: none Marital Status: Occupation Status: employed Allergies Coded Allergies: Nickel (Verified Allergy, Unknown, RASH, 12/08/16) Current Inpatient Medications Current Inpatient Medications Medications (Trade) Dose Ordered Sig/Ulises Route Start Time Stop Time Status Last Admin Dose Admin Vancomycin HCl (Consult) 1 ea DAILY PRN N/A 12/09/16 21:27 01/08/17 21:26 Acetaminophen (Tylenol Tab) 650 mg Q4H PRN PO 12/09/16 21:00 01/08/17 20:59 Zolpidem Tartrate (Ambien Tab) 5 mg HSZ PRN PO 12/09/16 21:00 01/08/17 20:59 Lorazepam (Ativan Inj) 0.5 mg Q4H PRN IV 12/09/16 21:00 01/08/17 20:59 Magnesium Hydroxide (Milk Of Magnesia Susp) 30 ml Q6H PRN PO 12/09/16 21:00 01/08/17 20:59 Diphenhydramine HCl (Benadryl Inj) 25 mg Q4H PRN IV 12/09/16 21:00 01/08/17 20:59 Al Hydrox/Mg Hydrox/ Simethicone 15 ml 15 ml Q4H PRN PO 12/09/16 21:00 01/08/17 20:59 Promethazine HCl/ Sodium Chloride (Phenergan Inj/ Nss 50ml) 50.5 ml @ 202 mls/hr Q4H PRN IV 12/09/16 21:00 01/08/17 20:59 Ondansetron HCl 4 mg 4 mg Q6H PRN IV 12/09/16 21:00 01/08/17 20:59 Potassium Chloride/Sodium Chloride 1,000 ml @ 100 mls/hr Q10H IV 12/09/16 22:15 01/08/17 22:14 12/10/16 08:09 100 MLS/HR Lorazepam 0.5 mg/ Syringe 1 ml @ 1 mls/min Q4H PRN IV 12/09/16 22:30 01/08/17 22:29 Piperacillin Sod/ Tazobactam Sod/ Dextrose (Zosyn Iv/D5 100ml) 115 ml @ 28.75 mls/ hr Q8H IV 12/10/16 04:00 12/20/16 03:59 12/10/16 04:39 28.75 MLS/HR Piperacillin Sod/ Tazobactam Sod 1 ea 1 ea UD PRN N/A 12/09/16 22:45 01/08/17 22:44 Vancomycin HCl/ Sodium Chloride (Vancomycin Inj/ Nss 500ml) 532 ml @ 200 mls/hr Q8H IV 12/10/16 02:00 12/20/16 01:59 12/10/16 09:29 200 MLS/HR Morphine Sulfate (MoRPHine SULFATE INJ) 4 mg Q2H PRN IV 12/10/16 11:00 12/24/16 10:59 Docusate Sodium (coLACE CAP) 100 mg BID PO 12/10/16 21:00 01/09/17 20:59 Docusate Sodium (coLACE CAP) 100 mg 1030 ONCE PO 12/10/16 10:30 12/10/16 10:31 Enoxaparin Sodium (Lovenox Inj) 40 mg QAM SQ 12/11/16 09:00 01/10/17 08:59 Nicotine (Nicoderm Cq 21MG Patch) 1 patch QAM TD 12/11/16 09:00 01/10/17 08:59 Miscellaneous (Remove Nicoderm Patch) 1 ea HS N/A 12/11/16 21:00 01/10/17 20:59 Nicotine (Nicoderm Cq 21MG Patch) 1 patch 1045 ONCE TD 12/10/16 10:45 12/10/16 10:46 Miscellaneous (Remove Nicoderm Patch) 1 ea HS ONCE N/A 12/10/16 21:00 12/10/16 21:01 UNV Morphine Sulfate (MoRPHine SULFATE INJ) 2 mg Q2H PRN IV 12/10/16 10:15 12/23/16 20:59 Review of Systems Constitutional: + chills, + fatigue, + fever, + weakness Eyes: No problem reported ENT: No problem reported Respiratory: No problem reported Cardiovascular: No problem reported Abdomen: No problem reported Musculoskeletal: + joint pain, + muscle pain Genitourinary - Male: No problem reported Neurologic: No problem reported Psychiatric: No problem reported Endocrine: No problem reported Hematologic / Lymphatic: No problem reported Integumentary: + new/changing skin lesions Physical Exam Date Time Temp Pulse Resp B/P Pulse Ox O2 Delivery O2 Flow Rate FiO2 12/10/16 07:56 Room Air 12/10/16 07:53 36.7 74 18 112/71 100 Room Air 12/10/16 00:15 Room Air 12/09/16 23:21 37.1 74 16 114/74 Room Air 12/09/16 23:07 36.8 67 14 110/64 98 Room Air 12/09/16 21:53 37.2 84 18 131/85 97 12/09/16 21:20 84 18 131/85 97 Room Air 12/09/16 20:11 79 18 135/86 97 Room Air 12/09/16 19:15 76 18 134/75 97 Room Air 12/09/16 17:46 37.2 94 18 146/87 98 Room Air General Appearance: WD/WN, + mild distress Head: normocephalic, atraumatic Eyes: normal inspection, EOMI, sclerae normal ENT: normal ENT inspection, hearing grossly normal, pharynx normal Neck: supple, no adenopathy, thyroid normal, trachea midline Respiratory/Chest: chest non-tender, lungs clear, normal breath sounds, no respiratory distress Cardiovascular: regular rate, rhythm, no gallop, no murmur Abdomen/GI: normal bowel sounds, non tender, soft, no organomegaly Back: normal inspection, no CVA tenderness Extremities/Musculoskelatal: no calf tenderness, normal capillary refill, + inflammation (right arm), + swelling (right wrist/hand) Neurologic/Psych: alert, oriented x 3 Skin: normal color, + pertinent finding (puncture wound right wrist, cellulitis wrist with lymphangitc streaking up arm, early right olecranon bursa redness and swelling) Lymphatic: no adenopathy Laboratory Results Date/Time Source Procedure Growth Status 12/10/16 10:12 Blood Blood Culture Pending Home Batch 12/10/16 10:12 Blood Blood Culture Pending Home Batch Last 24 Hours Test 12/09/16 18:54 12/10/16 07:07 12/10/16 10:16 White Blood Count 13.26 K/uL 9.60 K/uL Red Blood Count 4.97 M/uL 4.36 M/uL Hemoglobin 14.9 g/dL 13.2 g/dL Hematocrit 42.6 % 38.9 % Mean Corpuscular Volume 85.7 fL 89.2 fL Mean Corpuscular Hemoglobin 30.0 pg 30.3 pg Mean Corpuscular Hemoglobin Concent 35.0 g/dl 33.9 g/dl Platelet Count 177 K/uL 148 K/uL Mean Platelet Volume 10.9 fL 11.3 fL Neutrophils (%) (Auto) 61.3 % 62.6 % Lymphocytes (%) (Auto) 24.5 % 21.3 % Monocytes (%) (Auto) 11.2 % 12.3 % Eosinophils (%) (Auto) 2.5 % 3.3 % Basophils (%) (Auto) 0.2 % 0.2 % Neutrophils # (Auto) 8.13 K/uL 6.01 K/uL Lymphocytes # (Auto) 3.25 K/uL 2.04 K/uL Monocytes # (Auto) 1.49 K/uL 1.18 K/uL Eosinophils # (Auto) 0.33 K/uL 0.32 K/uL Basophils # (Auto) 0.02 K/uL 0.02 K/uL RDW Standard Deviation 42.9 fL 45.8 fL RDW Coefficient of Variation 13.7 % 13.9 % Immature Granulocyte % (Auto) 0.3 % 0.3 % Immature Granulocyte # (Auto) 0.04 K/uL 0.03 K/uL Sodium Level 141 mmol/L 143 mmol/L Potassium Level 3.9 mmol/L 4.4 mmol/L Chloride Level 107 mmol/L 110 mmol/L Carbon Dioxide Level 22 mmol/L 23 mmol/L Anion Gap 12.0 mmol/L 10.0 mmol/L Blood Urea Nitrogen 18 mg/dl 11 mg/dl Creatinine 1.10 mg/dl 0.94 mg/dl Est Creatinine Clear Calc Drug Dose 139.4 ml/min 163.1 ml/min Estimated GFR () 104.6 126.5 Estimated GFR (Non- 90.2 109.1 BUN/Creatinine Ratio 15.9 11.2 Random Glucose 85 mg/dl 102 mg/dl Calcium Level 8.8 mg/dl 8.4 mg/dl Magnesium Level 2.1 mg/dl Patient Name: LEIF CONNELL Unit Number: [id number] Dictated: 12/08/161514 Transcribed: 12/08/16 151 MS Printed Date/Time: [~ rep prt dt]/[~ rep prt tm] [~ rep ct labl] - [~ rep ct ivnm] [facility] [place] [address] Dictated: 12/08/161514 Transcribed: 12/08/16 1515 MS Printed Date/Time: [~ rep prt dt]/[~ rep prt tm] [~ rep ct labl] - [~ rep ct ivnm] [~ rep ct add3]] RIGHT WRIST MIN 3 VIEWS ROUTINE CLINICAL HISTORY: puncture wound R wrist Right trauma COMPARISON: None. DISCUSSION: The bones and joint spaces appear intact. There is no evidence of fracture, dislocation or bony disease. There is no evidence for soft tissue swelling. IMPRESSION: Negative study. No evidence for radiopaque foreign body Electronically signed by: Arben Matt M.D. 12/08/2016 3:16 PM Dictated Date/Time: 12/08/2016 3:15 PM The status of this report is Signed. Draft = Not yet reviewed or approved by Radiologist. Signed = Reviewed and approved by Radiologist. <AttendingPhy></AttendingPhy> <FamilyPhy>Jose Francisco Ramirez M.D.</FamilyPhy> < PrimaryPhy>Jose Francisco Ramirez M.D.</PrimaryPhy> <UnitNumber>[id number]</UnitNumber > <VisitNumber>[id number]</VisitNumber> <PatientName>LEIF CONNELL</ PatientName> <DateOfBirth>1985</DateOfBirth> <Location>[facility]</Location> < ServiceDate>12/08/16</ServiceDate> <MNE>ESINDI</MNE> <OrderingPhy>Murillo Cory D PA-C</OrderingPhy> <OrderingPhyMNE>f rep ord dr pina</OrderingPhyMNE> < DictatingPhyMNE>f rep dict dr pina</DictatingPhyMNE> <CCListMNE>f rep ct mne</ CCListMNE> <AdmittingPhyMNE>f pt admit dr pina</AdmittingPhyMNE> <AttendingPhyMNE >f pt attend dr pina</AttendingPhyMNE> <ConsultingPhyMNE>f pt consult dr pina</ConsultingPhyMNE> <FamilyPhyMNE>f pt fam dr pina</FamilyPhyMNE> <OtherPhyMNE>f pt other dr pina</OtherPhyMNE> < PrimaryPhyMNE>f pt prim care dr pina</PrimaryPhyMNE> <ReferringPhyMNE>f pt referring dr pina</ReferringPhyMNE> Assessment & Plan Cellulitis and lymphangitis right wrist and arm, also possible developing septic bursitis following puncture wound right wrist. Although clinical appearance most consistent with beta-hemolytic Strep infection, wound likely was contaminated with animal feces/dirt and so wide range of pathogens possible. Will continue vancomycin and Zosyn, and will add clindamycin for anti- toxin effects. Blood cultures ordered. Consider MRI to better evaluate wrst. Await orthopedic consultation. Will follow.
[2016-12-10] MEDS ORDERED: DOCUSATE SODIUM 100 MG CAP PO ONE (10:30)
[2016-12-10] MEDS ORDERED: NICOTINE 21 MG/24 HR TDSY TD ONE (10:45)
[2016-12-10 11:04] LABS: HEMATOCRIT 39.8 % (42-52); MEAN CELL VOLUME 89.2 fL (80-100); MEAN CORPUSCULAR HEMOGLOBIN 30.3 pg (25-34); MEAN CORPUSCULAR HGB CONC 33.9 g/dl (32-36); MEAN PLATELET VOLUME 11.6 fL (7.4-10.4); PLATELET COUNT 151 K/uL (130-400); RED BLOOD COUNT 4.46 M/uL (4.7-6.1); WHITE BLOOD COUNT 8.39 K/uL (4.8-10.8)
[2016-12-10 11:14] LABS: PROTHROMBIN TIME (PATIENT) 10.6 SECONDS (9.0-12.0)
[2016-12-10] MEDS: CLINDAMYCIN IV 900 MG in DEXTROSE 5% ADD-VANTAGE 100ML 100 ML IV SCH ×2 (11:49→20:28)
[2016-12-10] MEDS: MoRPHine SULFATE 2 MG/ML CARP IV PRN ×4 (11:50→20:16)
--- NOTE | 2016-12-10 14:32 | CONSULTATION REPORT ---
DATE OF CONSULTATION: 12/10/2016 REASON FOR CONSULTATION: Puncture wound of his right wrist. HISTORY OF PRESENT ILLNESS: Mr. Tsai is a pleasant 31-year-old male who initially presented to the Emergency Department 12/08/2016 after sustaining a puncture wound to the right wrist, volar side. He states he was taking apart a rabbit cage and was attempting to knock a piece of wood apart by striking it with his palm. There was a screw sticking on the wood that he did not see, it punctured through his leather glove and into the volar aspect of his wrist. He is right hand dominant. He went to the Emergency Room on 12/08/2016 and was given a tetanus immunization, had the wound cleansed, bacitracin, Galeano dressing and started on Keflex 500 mg 4 times a day for 7 days. He returned to the Emergency Department on 12/09/2016 for increased pain and developing of a fever. He states that he had a fever of 102 degrees. He had been taking Tylenol and ibuprofen without any relief. Since that time, he has been admitted and has been started on IV vancomycin and Zosyn and also appears clindamycin this morning. He is a right hand dominant male and denies any previous injuries or trauma to the area. PAST MEDICAL HISTORY: He denies a history of hypertension, high cholesterol, diabetes, bleeding or clotting disorders. ALLERGIES: No known drug allergies. HE DOES DEVELOP A RASH FROM NICKEL. HOME MEDICATIONS: 1. Keflex as outlined above. 2. [place] as needed for pain. FAMILY HISTORY: Significant for diabetes, heart disease, hypertension, cancer, lung disease. SOCIAL HISTORY: The patient is . Denies a history of alcohol use. He does admit to smoking. REVIEW OF SYSTEMS: Otherwise negative. Please see HPI for pertinent positives. PHYSICAL EXAMINATION: GENERAL: Pleasant, cooperative 31-year-old male in no acute distress, alert and oriented x3. Temperature is currently 36.7, pulse 74, respirations 18, blood pressure is 112/71, and O2 sat 100% on room air. HEENT: Normocephalic, atraumatic. EXTREMITIES: With regards to his right upper extremity, there is a puncture wound on the volar aspect of his hand. There is currently no drainage or foreign material noted. He does have significant tenderness surrounding the right wrist joint. The radial, median, ulnar nerves are all functioning and intact. Radial pulses +2. He does have normal sensation throughout the digits, has most pain with opposition. He has no tenderness at the right elbow joint. His tenderness does begin at approximately mid forearm level and increase the closer it gets to his wrist. He does have normal strength; however, does experience pain with resistance as well as decreased strength with extension of the digits. Capillary refill is less than 2 seconds. Sensation is intact throughout all digits. There is erythema present of the dorsum of the wrist which is also slightly extending up the mostly ulnar aspect of his wrist extending approximately 5 cm proximal. IMAGING DATA: Right wrist x-ray is taken on 12/08/2016 show no evidence for foreign body, no evidence of fracture, dislocation or bony disease. LABORATORY DATA: CBC on 12/10/2016, white blood cells 8.39, red blood cells 4.46, hemoglobin is 13.5, hematocrit is 39.8 and platelets 151. INR is 1.0. Chemistry panel: Sodium is 143, potassium is 4.4, BUN 11, creatinine 0.94, and random glucose 102. IMPRESSION: Puncture wound of the right wrist with cellulitis with possible tenosynovitis. PLAN: Further care discussed with patient and reviewed infectious disease consultation as well. We will continue with antibiotics as discussed, had been started on clindamycin earlier today, as well as Vanco and Zosyn. We will continue to ice and elevate the wrist for swelling. We will obtain MRI to evaluate for abscess or septic arthritis. We will await blood culture results. He may move his fingers and wrist as tolerated. further care pending MRI results, will allow regular diet today and NPO after midnight. TEODORO
[2016-12-10 15:35] VITALS: BP 121/78; PULSE 88; TEMP 37.1; O2SAT 98
--- NOTE | 2016-12-10 16:15 | ORTHOPEDIC CONSULTATION ---
DATE OF CONSULTATION: 12/10/2016 DATE OF CONSULTATION: 12/10/2016. HISTORY OF PRESENT ILLNESS: The patient presents as a 31-year-old white male sustaining a puncture wound from a yudelka nail on the volar aspect of the region of the volar flexion crease of his wrist on Friday. He was seen in the Emergency Room and placed on oral antibiotics, returned yesterday with progressive cellulitis and worsening of symptoms. He is noted to be neurovascularly and neurologically intact. His compartments are soft. No evidence of compartment syndrome is noted though he does have some cellulitis spreading approximately 6-8 cm on the volar aspect of his forearm. He has no Kanavel's signs. He has passive flexion of the tendons. Reveals no evidence of any type of acute suppurative tenosynovitis into his fingers, although he does have pain and tenderness to the volar aspect of his forearm. He does have cellulitis with some swelling and edema which his also relates has worsened in the last day. His antibiotics have been changed just recently. I have also discussed the upcoming MRI scan. Will follow back with this after it is completed. ASSESSMENT: Cellulitis status post puncture wound right volar forearm. PLAN: MRI scan, possible I\T\D pending findings at MRI scan. We will discuss the case as well with Dr. Copeland.
[2016-12-10] MEDS: ACETAMINOPHEN 325 MG TAB PO PRN (16:43)
[2016-12-10] MEDS ORDERED: FENTANYL 12 MCG/HR TDSY TD SCH (17:00)
[2016-12-10] MEDS ORDERED: VANCOMYCIN TROUGH SCH (17:30)
[2016-12-10] MEDS: DOCUSATE SODIUM 100 MG CAP PO SCH (20:49)
[2016-12-10] MEDS ORDERED: GADAVIST IV PRN (22:00)
[2016-12-10 22:49] VITALS: BP 110/70; PULSE 79; TEMP 36.8; O2SAT 98
--- NOTE | 2016-12-10 23:02 | DIAGNOSTIC IMAGING REPORT ---
RIGHT WRIST MRI WITH AND WITHOUT INTRAVENOUS CONTRAST HISTORY: Right wrist swelling. R/O abscess Right TECHNIQUE: Multiplanar multisequence MRI of the right wrist was performed both before and after the intravenous administration of contrast. COMPARISON STUDY: Right wrist 12/08/2016. FINDINGS: No acute fracture dislocation within the right wrist. Small areas of cystic change within the lunate and radial styloid which favor degenerative change. The scapholunate, lunotriquetral, and TFCC appear to be intact. The dorsal and volar tendons are normal in course, caliber, and signal intensity. The median nerve also demonstrates a normal signal intensity. There is a skin marker overlying the volar aspect of the wrist. There is diffuse subcutaneous edema and enhancement throughout the volar side of the wrist. There is also edema and enhancement surrounding the volar tendons of the wrist at the level of the distal radius with mild edema and enhancement within the musculotendinous junctions. Small joint effusion within the wrist. Immediately superficial and abutting the volar tendons of the wrist best seen on axial image 19 there is a 7 x 2 mm peripheral enhancing loculated fluid collection. This is deep to the flexor retinaculum and is concerning for a small abscess. IMPRESSION: 1. Subcutaneous and deep soft tissue edema and enhancement along the volar side of the wrist consistent with a cellulitis/fasciitis. There is also mild edema and enhancement at the musculotendinous junctions of the volar tendons consistent with an associated myositis. In addition, immediately superficial to and abutting the volar tendons of the wrist there is a 7 x 2 mm peripheral enhancing loculated fluid collection. This is deep to the flexor retinaculum and is concerning for a small abscess. 2. Small joint effusion within the wrist. There is no abnormal signal intensity within the bones of the wrist to suggest an associated septic arthritis or osteomyelitis at this time. 3. No fracture or dislocation within the wrist. Electronically signed by: David Mccarthy M.D. 12/11/2016 4:23 PM Dictated Date/Time: 12/10/2016 10:52 PM
[2016-12-10] MEDS: CHECK FENTANYL PATCH PLACEMENT SCH (23:27)
[2016-12-11] VITALS (8 sets, daily range): BP systolic 102–118; BP diastolic 65–77; PULSE 71–85; TEMP 36.7–37.1; O2SAT 95–100
[2016-12-11] MEDS: VANCOMYCIN INJ 1,600 MG in SODIUM CHLORIDE 0.9% 500ML 500 ML IV SCH ×2 (01:40→10:04)
[2016-12-11] MEDS: MoRPHine SULFATE 4 MG/ML 1 ML CARP\\VIAL IV PRN ×6 (03:20→14:09)
[2016-12-11] MEDS: PIPERACILL/TAZOBAC IV 3.375 GM in DEXTROSE 5% 100ML IV SCH ×3 (04:27→23:11)
[2016-12-11] MEDS: NSS + 20MEQ KCL 1000ML 1,000 ML IV SCH ×2 (04:28→14:08)
[2016-12-11] MEDS: CLINDAMYCIN IV 900 MG in DEXTROSE 5% ADD-VANTAGE 100ML 100 ML IV SCH ×3 (04:28→23:11)
[2016-12-11] MEDS: CHECK FENTANYL PATCH PLACEMENT SCH ×2 (07:02→16:00)
[2016-12-11 07:54] LABS: BASO % 0.2 %; BASO ABS # 0.02 K/uL (0-0.2); COMPLETE YES; HEMATOCRIT 38.7 % (42-52); IG% 0.4 %; LYMPH % 21.9 %; LYMPH ABS # 1.81 K/uL (1.2-3.4); MEAN CELL VOLUME 89.2 fL (80-100); MEAN CORPUSCULAR HGB CONC 33.6 g/dl (32-36); MEAN PLATELET VOLUME 11.4 fL (7.4-10.4); MONO % 14.6 %; NEUT % 59.9 %; PLATELET COUNT 149 K/uL (130-400); RED BLOOD COUNT 4.34 M/uL (4.7-6.1); WHITE BLOOD COUNT 8.28 K/uL (4.8-10.8)
[2016-12-11] MEDS: DOCUSATE SODIUM 100 MG CAP PO SCH ×2 (07:57→21:39)
[2016-12-11] MEDS: NICOTINE 21 MG/24 HR TDSY TD SCH (08:09)
[2016-12-11 08:20] LABS: BUN/CREATININE RATIO 7.6 (10-20); CALCIUM 8.2 mg/dl (8.5-10.1); CREATININE 0.96 mg/dl (0.60-1.40); MAGNESIUM 2.2 mg/dl (1.8-2.4); POTASSIUM 4.5 mmol/L (3.5-5.1)
--- NOTE | 2016-12-11 08:59 | Orthopedic Progress Note ---
Orthopedic Progress Note Date of Service Dec 11, 2016. Subjective Additional Notes: Continues with moderate wrist/hand pain today. Comfortable enough when at rest. States he's unable to bend the wrist/fingers much which has been the norm since the infection. Discussed MRI results the need for I&D of the wrist per Dr Copeland. Risks and benefits explained to patient and his and they are agreeable to surgery. Pt has some fears over intubation due to previous family health issues but none of his own. Stated that Anesthesia would be in to see him and discuss the different types of anesthesia available to him. Pt/ understand and agreeable. Objective Right hand with swelling. Erythema noted on the dorsum of the hand and going up the wrist/forearm. Increased pain with passive extension of the 3rd through 5th fingers. Minimal with the index finger and none with the thumb. Freely moving the thumb well. Slight decrease in ROM of the index. Mimimal ROM of the 3 - 5. Unable to flex the wrist. Sensation intact. Cap refill < 2 seconds. Fingers cool to touch but patient states he just had ice on the hand and fingers. Date Time Temp Pulse Resp B/P Pulse Ox O2 Delivery O2 Flow Rate FiO2 12/11/16 07:55 37.1 78 20 107/77 100 Room Air 12/11/16 07:08 Room Air 12/10/16 23:37 Room Air 12/10/16 22:49 36.8 79 18 110/70 98 Room Air 12/10/16 17:00 Room Air 12/10/16 15:35 37.1 88 18 121/78 98 Room Air Laboratory Results 24 Hours: Test 12/10/16 10:48 12/11/16 07:24 Hematocrit 39.8 % 38.7 % Hemoglobin 13.5 g/dL 13.0 g/dL Prothromb Time International Ratio 1.0 Prothrombin Time 10.6 SECONDS White Blood Count 8.28 K/uL Red Blood Count 4.34 M/uL Mean Corpuscular Volume 89.2 fL Mean Corpuscular Hemoglobin 30.0 pg Mean Corpuscular Hemoglobin Concent 33.6 g/dl Platelet Count 149 K/uL Mean Platelet Volume 11.4 fL Neutrophils (%) (Auto) 59.9 % Lymphocytes (%) (Auto) 21.9 % Monocytes (%) (Auto) 14.6 % Eosinophils (%) (Auto) 3.0 % Basophils (%) (Auto) 0.2 % Neutrophils # (Auto) 4.96 K/uL Lymphocytes # (Auto) 1.81 K/uL Monocytes # (Auto) 1.21 K/uL Eosinophils # (Auto) 0.25 K/uL Basophils # (Auto) 0.02 K/uL Assessment & Plan Assessment: Right Wrist Abscess Cellulitis Plan: Plan for I&D of the right wrist today with Dr Copeland. Continue IV antibx Pain management Hold Lovenox Inhouse Planning Pain Management: Morphine, PO Tylenol DVT Prophylaxis: Lovenox
[2016-12-11] MEDS ORDERED: ENOXAPARIN 40 MG/0.4 ML SYR SQ SCH (09:00)
--- NOTE | 2016-12-11 09:20 | Progress Note ---
Subjective Date of Service: Dec 11, 2016. Subjective Pt evaluation today including: conversation w/ patient, conversation w/ family , physical exam, chart review, lab review, review of studies, conversation w/ data security consultant, review of inpatient medication list Continue have significant right wrist pain, the ventral part of wrist erythema has expansion up to mid of of forearm, however local forearm red and swelling seems a little better, but still hot to touch, no fever and chill, has good urination, passing gas, no bowel movement since admission, Problem List Medical Problems: (1) Cellulitis Status: Acute (2) Infection of flexor tendon sheath Status: Acute (3) Knee pain Status: Acute (4) Puncture wound of right wrist without foreign body Status: Acute Review of Systems Constitutional: No chills, No fatigue, No fever, No problem reported, No sweats , No weakness, No weight loss Eyes: No diplopia, No discharge, No eye pain, No redness, No worsening of vision ENT: No dental problems, No hearing loss, No nasal symptoms, No sore throat, No tinnitus, No trouble swallowing, No unusual epistaxis Respiratory: No cough, No dyspnea at rest, No dyspnea on exertion, No hemoptysis, No shortness of breath, No sputum, No wheezing Cardiac: No PND, No chest pain, No claudication, No edema, No orthopnea, No palpitations Abdomen: No constipation, No diarrhea, No nausea, No pain, No vomiting Musculoskeletal: + joint pain, + see HPI, + swelling, No calf pain, No muscle pain Male : No dysuria, No hematuria, No incontinence, No nocturia more than once/ night, No slowing stream, No urinary frequency Neurologic: No balance problems, No memory loss, No numbness/tingling, No paralysis, No vertigo, No weakness Psychiatric: No anhedonism, No anxiety, No depression symptoms, No insomnia, No substance abuse Heme: No abnormal bleeding/bruising, No clotting problems, No night sweats, No swollen lymph nodes Endo: No excessive thirst, No excessive urination, No fatigue Skin: No bleeding, No color change, No itch, No new/changing skin lesions, No rash Objective Vital Signs Date Time Temp Pulse Resp B/P Pulse Ox O2 Delivery O2 Flow Rate FiO2 12/11/16 07:55 37.1 78 20 107/77 100 Room Air 12/11/16 07:08 Room Air 12/10/16 23:37 Room Air 12/10/16 22:49 36.8 79 18 110/70 98 Room Air 12/10/16 17:00 Room Air 12/10/16 15:35 37.1 88 18 121/78 98 Room Air Physical Exam General Appearance: WD/WN, no apparent distress Eyes: normal inspection, PERRL, EOMI, sclerae normal ENT: normal ENT inspection, hearing grossly normal, pharynx normal Neck: supple, no adenopathy, thyroid normal, no JVD, no carotid bruits, trachea midline Respiratory/Chest: chest non-tender, lungs clear, normal breath sounds, no respiratory distress, no accessory muscle use Cardiovascular: regular rate, rhythm, no edema, no gallop, no JVD, no murmur Abdomen: normal bowel sounds, non tender, soft, no organomegaly, no pulsatile mass Extremities: normal range of motion, non-tender, normal inspection, no pedal edema, no calf tenderness, normal capillary refill, pelvis stable Neurologic/Psychiatric: 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, no motor/sensory deficits, alert, normal mood/affect, oriented x 3 Skin: normal color, warm/dry, no rash, + pertinent finding (the ventral part of wrist punture wound, with erythema has expansion up to mid of of forearm, however local forearm red and swelling seems a little better, but still hot to touch, a lot pain when move fingers, cap refill /color normal) Lymphatic: no adenopathy Laboratory Results Last 24 Hours Test 12/10/16 10:48 12/10/16 15:15 12/10/16 17:30 12/11/16 07:24 White Blood Count 8.39 K/uL 8.28 K/uL Red Blood Count 4.46 M/uL 4.34 M/uL Hemoglobin 13.5 g/dL 13.0 g/dL Hematocrit 39.8 % 38.7 % Mean Corpuscular Volume 89.2 fL 89.2 fL Mean Corpuscular Hemoglobin 30.3 pg 30.0 pg Mean Corpuscular Hemoglobin Concent 33.9 g/dl 33.6 g/dl RDW Standard Deviation 45.4 fL 45.8 fL RDW Coefficient of Variation 13.9 % 13.9 % Platelet Count 151 K/uL 149 K/uL Mean Platelet Volume 11.6 fL 11.4 fL Prothrombin Time 10.6 SECONDS Prothromb Time International Ratio 1.0 Erythrocyte Sedimentation Rate 10 mm/hr C-Reactive Protein 2.40 mg/dl Vancomycin Level Trough 13.1 mcg/ml Neutrophils (%) (Auto) 59.9 % Lymphocytes (%) (Auto) 21.9 % Monocytes (%) (Auto) 14.6 % Eosinophils (%) (Auto) 3.0 % Basophils (%) (Auto) 0.2 % Neutrophils # (Auto) 4.96 K/uL Lymphocytes # (Auto) 1.81 K/uL Monocytes # (Auto) 1.21 K/uL Eosinophils # (Auto) 0.25 K/uL Basophils # (Auto) 0.02 K/uL Immature Granulocyte % (Auto) 0.4 % Immature Granulocyte # (Auto) 0.03 K/uL Sodium Level 142 mmol/L Potassium Level 4.5 mmol/L Chloride Level 108 mmol/L Carbon Dioxide Level 25 mmol/L Anion Gap 9.0 mmol/L Blood Urea Nitrogen 7 mg/dl Creatinine 0.96 mg/dl Est Creatinine Clear Calc Drug Dose 159.7 ml/min Estimated GFR () 123.3 Estimated GFR (Non- 106.4 BUN/Creatinine Ratio 7.6 Random Glucose 105 mg/dl Calcium Level 8.2 mg/dl Magnesium Level 2.2 mg/dl Assessment and Plan 31-year-old white male admitted on 12/09/2016 because of severe cellulitis/ Right Wrist Abscess: Right wrist cellulitis with ascending lymphangitis status post puncture wound with old metal screw Right Wrist Abscess Orthopedic improved appreciated, plan for I&D of the right wrist today with Dr Copeland. Continue Pain management, Hold Lovenox Continue on vancomycin/zosyn, add clindamycin, infectious disease input appreciated, Tobacco abuse disorder, counseling quit smoking, continue nicotine patch DVT prophylaxis, Discussed with patient and family answered all the questions right wrist MRI per report 1. Subcutaneous and deep soft tissue edema and enhancement along the volar side of the wrist consistent with a cellulitis/fasciitis. There is also mild edema and enhancement at the musculotendinous junctions of the volar tendons consistent with an associated myositis. In addition, immediately superficial to and abutting the volar tendons of the wrist there is a 7 x 2 mm peripheral enhancing loculated fluid collection. This is deep to the flexor retinaculum and is concerning for a small abscess. 2. Small joint effusion within the wrist. There is no abnormal signal intensity within the bones of the wrist to suggest an associated septic arthritis or osteomyelitis at this time. 3. No fracture or dislocation within the wrist. Continued [facility] stay due to: multiple IV medications needed Discharge planning: home
[2016-12-11] MEDS ORDERED: VANCOMYCIN TROUGH SCH (09:30)
--- NOTE | 2016-12-11 12:39 | Pharmacy Progress Note ---
Pharmacy Antibiotic Prog Note Date of Service: Dec 11, 2016. Subjective: The patient is currently receiving Vancomycin 1600 mg IV every 8 hours. The patient is currently on day # 3 of Vancomycin IV therapy. Objective: Height (Feet): 6 Height (Inches): 5.00 Weight (Kilograms): 115.000 Levels: Item Value Date Time Vancomycin Level Trough 13.7 mcg/ml 12/11/16 0940 Lab Results (24hrs): Laboratory Tests Test 12/11/16 07:24 BUN/Creatinine Ratio 7.6 Blood Urea Nitrogen 7 mg/dl Creatinine 0.96 mg/dl White Blood Count 8.28 K/uL Red Blood Count 4.34 M/uL Hemoglobin 13.0 g/dL Hematocrit 38.7 % Mean Corpuscular Volume 89.2 fL Mean Corpuscular Hemoglobin 30.0 pg Mean Corpuscular Hemoglobin Concent 33.6 g/dl Platelet Count 149 K/uL Mean Platelet Volume 11.4 fL Neutrophils (%) (Auto) 59.9 % Lymphocytes (%) (Auto) 21.9 % Monocytes (%) (Auto) 14.6 % Eosinophils (%) (Auto) 3.0 % Basophils (%) (Auto) 0.2 % Neutrophils # (Auto) 4.96 K/uL Lymphocytes # (Auto) 1.81 K/uL Monocytes # (Auto) 1.21 K/uL Eosinophils # (Auto) 0.25 K/uL Basophils # (Auto) 0.02 K/uL Micro Results: Item Value Date Time Blood Culture Received 12/10/16 1055 Blood Pending Blood Culture Received 12/10/16 1043 Blood Pending Assessment & Plan: ASSESSMENT: * 31 y/o male with right wrist cellulitis/lymphangitis resulting from a puncture with an old/yudelka screw in a rabbit cage. 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 Thank you
[2016-12-11] MEDS ORDERED: LIDOCAINE HCL 2% 2 ML VIAL (20MG/ML) ONE (15:14)
[2016-12-11] MEDS ORDERED: ONDANSETRON INJ 2 MG/ML 2 ML VIAL ONE (15:14)
[2016-12-11] MEDS ORDERED: PROPOFOL IV EMULSION 10 MG/ML 20 ML VIAL IV ONE ×2 (15:14→16:34)
[2016-12-11] MEDS ORDERED: DEXAMETHASONE SOD INJ 4 MG/ML VIAL ONE (15:14)
[2016-12-11] MEDS ORDERED: FENTANYL CITRATE INJ 50 MCG/1 ML 2 ML VIAL ONE ×2 (15:15→16:22)
[2016-12-11] MEDS ORDERED: MIDAZOLAM HCL 1 MG/ML 2ML VIAL ONE (15:15)
[2016-12-11] MEDS ORDERED: ONDANSETRON INJ 2 MG/ML 2 ML VIAL IV PRN (16:00)
[2016-12-11] MEDS ORDERED: KETOROLAC TROMETHAMINE 30 MG/ML VIAL IV. PRN (16:00)
[2016-12-11] MEDS ORDERED: LABETALOL HCL IV 5 MG/ML 20ML IV PRN (16:00)
[2016-12-11] MEDS ORDERED: ATROPINE SULFATE 0.1 MG/ML 5ML SYR IV PRN (16:00)
--- NOTE | 2016-12-11 16:09 | History & Physical Bridge Note ---
H&P Re-Evaluation Bridge Note: I have examined the patient, reviewed the History & Physical and in the interval since the performance of the History & Physical I have noted the following changes of clinical significance: No changes noted
[2016-12-11] MEDS ORDERED: KETOROLAC TROMETHAMINE 30 MG/ML VIAL ONE (16:22)
[2016-12-11] MEDS ORDERED: BUPIVACAINE 0.5 % 5 MG/1 ML MPF 30ML VIAL ONE (16:44)
[2016-12-11] MEDS ORDERED: BACITRACIN 50,000 UNITS IR ONE (16:54)
--- NOTE | 2016-12-11 17:23 | [facility] Post Operative Brief Note ---
Immediate Operative Summary Operative Date Dec 11, 2016. Pre-Operative Diagnosis abcess in right carpul tunnel, with flexor tenosynovitis Post-Operative Diagnosis same Procedure(s) Performed irrigation and debridement of right wrist carpul tunnel abscess and flexor tenosynovectomy Surgeon Dr. Copeland Wheel Alignment Technician Surgeon(s) no Estimated Blood Loss 10ml Specimens #1. Culture and sensitivity, aerobic and anaerobic, with gram stain, of infection of right wrist carpul tunnel -sent routine per surgeon #2. Culture and sensitivity, aerobic and anaerobic, with gram stain, of infection of right wrist carpul tunnel-sent routine per surgeon Drains none Anesthesia gen Complication(s) None Disposition Recovery Room / PACU
[2016-12-11] MEDS: HYDROmorphone INJ 2 MG/ML SYR/VIAL IV PRN ×4 (17:25→17:40)
--- NOTE | 2016-12-11 18:07 | Anesthesiology Progress Note ---
Anesthesia Post Op Note Date & Time Dec 11, 2016 at 18:07 Vital Signs Pain Intensity: 0 Vital Signs Past 12 Hours Date Time Temp Pulse Resp B/P Pulse Ox O2 Delivery O2 Flow Rate FiO2 12/11/16 17:55 68 16 129/73 98 Nasal Cannula 3 12/11/16 17:45 36.6 73 16 129/78 98 Nasal Cannula 3 12/11/16 17:35 77 16 135/87 100 Nasal Cannula 3 12/11/16 17:25 66 16 136/88 100 Mask 10 12/11/16 17:15 67 16 131/91 100 Mask 10 12/11/16 17:12 36.4 65 16 131/84 100 Mask 10 12/11/16 09:53 100 Room Air 12/11/16 07:55 37.1 78 20 107/77 100 Room Air 12/11/16 07:08 Room Air Notes Mental Status: alert / awake / arousable, participated in evaluation Pt Amnestic to Procedure: Yes Nausea / Vomiting: adequately controlled Pain: adequately controlled Airway Patency, RR, SpO2: stable & adequate BP & HR: stable & adequate Hydration State: stable & adequate Anesthetic Complications: no major complications apparent
[2016-12-11] MEDS: VANCOMYCIN INJ 1,900 MG in SODIUM CHLORIDE 0.9% 500ML 500 ML IV SCH (18:55)
[2016-12-11] MEDS: MoRPHine SULFATE 2 MG/ML CARP IV PRN ×2 (19:10→22:19)
--- NOTE | 2016-12-11 20:04 | Infectious Disease Progress Nt ---
Progress Note Date of Service Dec 11, 2016. Subjective Pt evaluation today including: conversation w/ patient, physical exam, chart review, lab review, review of studies, conversation w/ technical marketing consultant, review of inpatient medication list Patient now status post incision and drainage with finding of small abscess and tenosynovitis. Operative cultures pending. No obvious increase in spreading of erythema. Blood cultures remain no growth to date. All Other Systems: Reviewed and Negative Medications Current Inpatient Medications Medications (Trade) Dose Ordered Sig/Ulises Route Start Time Stop Time Status Last Admin Dose Admin Vancomycin HCl (Consult) 1 ea DAILY PRN N/A 12/09/16 21:27 12/19/16 23:59 Acetaminophen (Tylenol Tab) 650 mg Q4H PRN PO 12/09/16 21:00 01/08/17 20:59 12/10/16 16:43 650 MG Zolpidem Tartrate (Ambien Tab) 5 mg HSZ PRN PO 12/09/16 21:00 01/08/17 20:59 Lorazepam (Ativan Inj) 0.5 mg Q4H PRN IV 12/09/16 21:00 01/08/17 20:59 Magnesium Hydroxide (Milk Of Magnesia Susp) 30 ml Q6H PRN PO 12/09/16 21:00 01/08/17 20:59 Diphenhydramine HCl (Benadryl Inj) 25 mg Q4H PRN IV 12/09/16 21:00 01/08/17 20:59 Al Hydrox/Mg Hydrox/ Simethicone 15 ml 15 ml Q4H PRN PO 12/09/16 21:00 01/08/17 20:59 Promethazine HCl/ Sodium Chloride (Phenergan Inj/ Nss 50ml) 50.5 ml @ 202 mls/hr Q4H PRN IV 12/09/16 21:00 01/08/17 20:59 Ondansetron HCl 4 mg 4 mg Q6H PRN IV 12/09/16 21:00 01/08/17 20:59 Potassium Chloride/Sodium Chloride 1,000 ml @ 100 mls/hr Q10H IV 12/09/16 22:15 01/08/17 22:14 12/11/16 14:08 100 MLS/HR Lorazepam 0.5 mg/ Syringe 1 ml @ 1 mls/min Q4H PRN IV 12/09/16 22:30 01/08/17 22:29 Piperacillin Sod/ Tazobactam Sod/ Dextrose (Zosyn Iv/D5 100ml) 115 ml @ 28.75 mls/ hr Q8H IV 12/10/16 04:00 12/20/16 03:59 12/11/16 12:54 28.75 MLS/HR Piperacillin Sod/ Tazobactam Sod (Consult) 1 ea UD PRN N/A 12/09/16 22:45 01/08/17 22:44 Docusate Sodium (coLACE CAP) 100 mg BID PO 12/10/16 21:00 01/09/17 20:59 12/10/16 20:49 100 MG Nicotine (Nicoderm Cq 21MG Patch) 1 patch QAM TD 12/11/16 09:00 01/10/17 08:59 12/11/16 08:09 1 PATCH Miscellaneous (Remove Nicoderm Patch) 1 ea HS N/A 12/11/16 21:00 01/10/17 20:59 Morphine Sulfate 2 mg 2 mg Q2H PRN IV 12/10/16 10:15 12/23/16 20:59 12/11/16 19:10 2 MG Clindamycin Phosphate/Dextrose (Cleocin Iv/ Dextrose Add-Brewer 100ML) 106 ml @ 100 mls/hr Q8H IV 12/10/16 12:00 12/12/16 10:30 12/11/16 12:05 100 MLS/HR Morphine Sulfate (MoRPHine SULFATE INJ) 4 mg Q2H PRN IV 12/10/16 16:30 12/24/16 16:29 12/11/16 14:09 4 MG Fentanyl (Duragesic Patch) 12 mcg Q72H TD 12/10/16 17:00 12/24/16 16:59 12/10/16 18:19 12 MCG Miscellaneous (Fentanyl Patch Remove & Waste) 1 ea Q3D N/A 12/13/16 16:45 01/12/17 16:44 Miscellaneous Information (Check Fentanyl Patch Placement) 1 ea QS N/A 12/11/16 00:00 01/10/17 00:00 12/11/16 16:00 1 EA Gadobutrol 11.5 mmol 11.5 mmol UD PRN IV 12/10/16 22:00 12/14/16 21:59 Vancomycin HCl/ Sodium Chloride (Vancomycin Inj/ Nss 500ml) 538 ml @ 200 mls/hr Q8H IV 12/11/16 16:00 12/19/16 23:59 12/11/16 18:55 200 MLS/HR Ondansetron HCl (Zofran Inj) 4 mg ONE PRN IV 12/11/16 16:00 12/11/16 21:00 Atropine Sulfate (Atropine Sulfate 0.1MG/Ml Inj) 0.5 mg Q1M PRN IV 12/11/16 16:00 12/11/16 21:00 Ketorolac Tromethamine (Toradol Inj) 30 mg ONE PRN IV. 12/11/16 16:00 12/11/16 21:00 Hydromorphone HCl (Dilaudid Inj) 0.25 mg Q5M PRN IV 12/11/16 16:00 12/11/16 21:00 12/11/16 17:40 0.25 MG Labetalol HCl (Normodyne IV) 5 mg Q5M PRN IV 12/11/16 16:00 12/11/16 21:00 Objective Vital Signs Date Time Temp Pulse Resp B/P Pulse Ox O2 Delivery O2 Flow Rate FiO2 12/11/16 19:19 36.7 85 18 113/67 97 Nasal Cannula 2.0 12/11/16 18:15 37.1 79 16 118/75 100 Nasal Cannula 2.0 12/11/16 17:55 68 16 129/73 98 Nasal Cannula 3 12/11/16 17:45 36.6 73 16 129/78 98 Nasal Cannula 3 12/11/16 17:35 77 16 135/87 100 Nasal Cannula 3 12/11/16 17:25 66 16 136/88 100 Mask 10 12/11/16 17:15 67 16 131/91 100 Mask 10 12/11/16 17:12 36.4 65 16 131/84 100 Mask 10 12/11/16 09:53 100 Room Air 12/11/16 07:55 37.1 78 20 107/77 100 Room Air 12/11/16 07:08 Room Air 12/10/16 23:37 Room Air 12/10/16 22:49 36.8 79 18 110/70 98 Room Air Physical Exam General Appearance: WD/WN, no apparent distress Eyes: normal inspection, sclerae normal ENT: normal ENT inspection, pharynx normal Neck: supple, no adenopathy, trachea midline Respiratory/Chest: lungs clear, normal breath sounds, no respiratory distress Cardiovascular: regular rate, rhythm, no gallop, no murmur Abdomen: normal bowel sounds, non tender, soft, no organomegaly Extremities: non-tender, no calf tenderness, normal capillary refill Neurologic/Psychiatric: alert, oriented x 3 Skin: normal color, + pertinent finding ( Surgical dressing intact right wrist , decreased erythema of right arm) Lymphatic: no adenopathy Laboratory Results Date/Time Source Procedure Growth Status 12/11/16 16:44 Drainage-Deep Wrist Right Gram Stain Pending Received 12/11/16 16:44 Drainage-Deep Wrist Right Bacterial Culture Pending Received 12/11/16 16:43 Drainage-Deep Wrist Right Gram Stain Pending Received 12/11/16 16:43 Drainage-Deep Wrist Right Bacterial Culture Pending Received Last 24 Hours Test 12/11/16 07:24 12/11/16 09:40 White Blood Count 8.28 K/uL Red Blood Count 4.34 M/uL Hemoglobin 13.0 g/dL Hematocrit 38.7 % Mean Corpuscular Volume 89.2 fL Mean Corpuscular Hemoglobin 30.0 pg Mean Corpuscular Hemoglobin Concent 33.6 g/dl Platelet Count 149 K/uL Mean Platelet Volume 11.4 fL Neutrophils (%) (Auto) 59.9 % Lymphocytes (%) (Auto) 21.9 % Monocytes (%) (Auto) 14.6 % Eosinophils (%) (Auto) 3.0 % Basophils (%) (Auto) 0.2 % Neutrophils # (Auto) 4.96 K/uL Lymphocytes # (Auto) 1.81 K/uL Monocytes # (Auto) 1.21 K/uL Eosinophils # (Auto) 0.25 K/uL Basophils # (Auto) 0.02 K/uL RDW Standard Deviation 45.8 fL RDW Coefficient of Variation 13.9 % Immature Granulocyte % (Auto) 0.4 % Immature Granulocyte # (Auto) 0.03 K/uL Sodium Level 142 mmol/L Potassium Level 4.5 mmol/L Chloride Level 108 mmol/L Carbon Dioxide Level 25 mmol/L Anion Gap 9.0 mmol/L Blood Urea Nitrogen 7 mg/dl Creatinine 0.96 mg/dl Est Creatinine Clear Calc Drug Dose 159.7 ml/min Estimated GFR () 123.3 Estimated GFR (Non- 106.4 BUN/Creatinine Ratio 7.6 Random Glucose 105 mg/dl Calcium Level 8.2 mg/dl Magnesium Level 2.2 mg/dl Vancomycin Level Trough 13.7 mcg/ml Patient Name: LEIF CONNELL Unit Number: [id number] Dictated: 12/10/[id number] Transcribed: 12/10/162300 [place] Printed Date/Time: [~ rep prt dt]/[~ rep prt tm] [~ rep ct labl] - [~ rep ct ivnm] [facility] [place] [address] Dictated: 12/[id number] Transcribed: 12/10/162300 [place] Printed Date/Time: [~ rep prt dt]/[~ rep prt tm] [~ rep ct labl] - [~ rep ct ivnm] [~ rep ct add3]] RIGHT WRIST MRI WITH AND WITHOUT INTRAVENOUS CONTRAST HISTORY: Right wrist swelling. R/O abscess Right TECHNIQUE: Multiplanar multisequence MRI of the right wrist was performed both before and after the intravenous administration of contrast. COMPARISON STUDY: Right wrist 12/08/2016. FINDINGS: No acute fracture dislocation within the right wrist. Small areas of cystic change within the lunate and radial styloid which favor degenerative change. The scapholunate, lunotriquetral, and TFCC appear to be intact. The dorsal and volar tendons are normal in course, caliber, and signal intensity. The median nerve also demonstrates a normal signal intensity. There is a skin marker overlying the volar aspect of the wrist. There is diffuse subcutaneous edema and enhancement throughout the volar side of the wrist. There is also edema and enhancement surrounding the volar tendons of the wrist at the level of the distal radius with mild edema and enhancement within the musculotendinous junctions. Small joint effusion within the wrist. Immediately superficial and abutting the volar tendons of the wrist best seen on axial image 19 there is a 7 x 2 mm peripheral enhancing loculated fluid collection. This is deep to the flexor retinaculum and is concerning for a small abscess. IMPRESSION: 1. Subcutaneous and deep soft tissue edema and enhancement along the volar side of the wrist consistent with a cellulitis/fasciitis. There is also mild edema and enhancement at the musculotendinous junctions of the volar tendons consistent with an associated myositis. In addition, immediately superficial to and abutting the volar tendons of the wrist there is a 7 x 2 mm peripheral enhancing loculated fluid collection. This is deep to the flexor retinaculum and is concerning for a small abscess. 2. Small joint effusion within the wrist. There is no abnormal signal intensity within the bones of the wrist to suggest an associated septic arthritis or osteomyelitis at this time. 3. No fracture or dislocation within the wrist. Electronically signed by: David Mccarthy M.D. 12/11/2016 4:23 PM Dictated Date/Time: 12/10/2016 10:52 PM The status of this report is Signed. Draft = Not yet reviewed or approved by Radiologist. Signed = Reviewed and approved by Radiologist. <AttendingPhy>Rupesh Charlton MD, PhD</AttendingPhy> <FamilyPhy>Jose Francisco Ramirez M.D.</FamilyPhy> <PrimaryPhy>Jose Francisco Ramirez M.D.</PrimaryPhy> <UnitNumber> [id number]</UnitNumber> <VisitNumber>[id number]</VisitNumber> <PatientName> LEIF CONNELL REY</PatientName> <DateOfBirth>1985</DateOfBirth> <Location> [facility]</Location> <ServiceDate>12/09/16</ServiceDate> <MNE>ESIALEXANDROI</MNE> < OrderingPhy>Arben Andrews</OrderingPhy> <OrderingPhyMNE>f rep ord dr pina</ OrderingPhyMNE> <DictatingPhyMNE>f rep dict dr pina</DictatingPhyMNE> <CCListMNE> f rep ct yovani</CCListMNE> <AdmittingPhyMNE>f pt admit dr pina</AdmittingPhyMNE> < AttendingPhyMNE>f pt attend dr pina</AttendingPhyMNE> <ConsultingPhyMNE>f pt consult dr pina</ConsultingPhyMNE> <FamilyPhyMNE>f pt fam dr pina</FamilyPhyMNE> <OtherPhyMNE>f pt other dr pina</OtherPhyMNE> < PrimaryPhyMNE>f pt prim care dr pina</PrimaryPhyMNE> <ReferringPhyMNE>f pt referring dr pina</ReferringPhyMNE> Assessment and Plan Cellulitis and lymphangitis right wrist and arm, with small abscess on MRI, now status post debridement and drainage of abscess. Operative cultures are pending. Patient to be continued on Zosyn pending final operative cultures. We will continue to follow.
[2016-12-11] MEDS: ACETAMINOPHEN 325 MG TAB PO PRN (23:51)
[2016-12-12] MEDS: MoRPHine SULFATE 4 MG/ML 1 ML CARP\\VIAL IV PRN ×10 (00:34→23:48)
[2016-12-12] MEDS: VANCOMYCIN INJ 1,900 MG in SODIUM CHLORIDE 0.9% 500ML 500 ML IV SCH ×4 (00:35→23:49)
[2016-12-12] MEDS: NSS + 20MEQ KCL 1000ML 1,000 ML IV SCH ×2 (00:35→10:13)
[2016-12-12 03:43] VITALS: BP 110/61; PULSE 62; TEMP 36.7; O2SAT 97
[2016-12-12] MEDS: CLINDAMYCIN IV 900 MG in DEXTROSE 5% ADD-VANTAGE 100ML 100 ML IV SCH (05:00)
[2016-12-12] MEDS: PIPERACILL/TAZOBAC IV 3.375 GM in DEXTROSE 5% 100ML IV SCH ×3 (05:00→21:36)
--- NOTE | 2016-12-12 07:02 | OPERATIVE REPORT ---
DATE OF OPERATION: 12/11/2016 PREOPERATIVE DIAGNOSES: 1. Right wrist abscess and carpal tunnel. 2. Right flexor tenosynovitis. POSTOPERATIVE DIAGNOSES: Same. PROCEDURE: 1. Right wrist I\T\D abscess, deep, in carpal tunnel. 2. Right wrist flexor tenosynovectomy of the FDS tendons in the wrist. SURGEON: Bandar Copeland MD LOSS PREVENTION SPECIALIST: None. ANESTHESIA: General. INDICATIONS: A gentleman who sustained a puncture wound in the mid aspect of the carpal tunnel. He presents with increasing pain, swelling and fever. He has failed conservative treatment with antibiotics. MRI documented abscess within the carpal tunnel and associated fluid around the flexor tendon suggestive of flexor tenosynovitis. I discussed risks, benefits, reasonable outcomes and options with him. I discussed with him that I would open the carpal tunnel, that he likely has infection in the flexor tendon sheath as well. Examination does show pain with passive extension of the digits as well as erythema and tenderness of the carpal tunnel and volar wrist. The risks and benefits have been discussed including, but not limited to, risk of infection, nerve injury, stiffness, loss of motion, failure to improve, etc. The patient is agreeable and wishes to proceed. DESCRIPTION OF OPERATION: I made an extended carpal tunnel incision with a zigzag over the wrist. I carried this approximately 1 cm proximal to the wrist crease. Dissection was carried down through the skin and subcutaneous tissues. Sensory nerve branches were retracted free and I incised the superficial retinacular layer with a small amount of hemorrhage in the area from the trauma of the puncture wound. I followed this down and this did indeed go down through the transverse carpal ligament. Transverse carpal ligament was identified and this was sharply incised. I incised this distally to the level of the fat stripe and proximally under direct visualization to a level 1 cm proximal to the wrist crease and completely open the carpal tunnel. There was a small amount of fluid encountered with the carpal tunnel and gross pus was seen. I sent 2 sets of cultures. I performed an irrigation and debridement of abscess in the carpal tunnel. There is evidence of flexor tenosynovitis amongst the FDS tendon. I performed a limited flexor tenosynovectomy of the FDS tendons in the region of the carpal tunnel and the volar wrist. The area was inspected. There was no evidence of any other abscess. The median nerve was protected throughout the case. Incision was then irrigated with 3 liters of bacitracin impregnated normal saline. Tourniquet was let down, hemostasis was obtained with bipolar electrocautery. Skin was closed with 4-0 nylon in a mattress fashion and the patient was placed in soft dressings and sent to the PACU in stable condition. Postoperative plan will be to monitor cultures, continue antibiotics as per infectious disease with ice and elevation of the hand. He will begin digital range of motion tomorrow. I attest to the content of the Intraoperative Record and any orders documented therein. Any exceptions are noted below. RIVERD
[2016-12-12 07:17] LABS: BASO % 0.2 %; BASO ABS # 0.02 K/uL (0-0.2); COMPLETE YES; EOS % 0.5 %; HEMATOCRIT 35.5 % (42-52); IG% 0.3 %; LYMPH % 10.3 %; LYMPH ABS # 1.23 K/uL (1.2-3.4); MEAN CELL VOLUME 85.3 fL (80-100); MEAN CORPUSCULAR HGB CONC 35.2 g/dl (32-36); MONO % 14.1 %; NEUT % 74.6 %; PLATELET COUNT 176 K/uL (130-400); RED BLOOD COUNT 4.16 M/uL (4.7-6.1); WHITE BLOOD COUNT 11.95 K/uL (4.8-10.8)
[2016-12-12 07:30] VITALS: BP 101/61; PULSE 71; TEMP 36.5; O2SAT 100
[2016-12-12 07:45] LABS: CALCIUM 8.3 mg/dl (8.5-10.1); CREATININE 0.84 mg/dl (0.60-1.40); MAGNESIUM 2.2 mg/dl (1.8-2.4); POTASSIUM 4.3 mmol/L (3.5-5.1)
--- NOTE | 2016-12-12 07:48 | Anesthesiology Progress Note ---
Anesthesia Post Op Note Date & Time Dec 12, 2016 at 07:48 Vital Signs Vital Signs Past 12 Hours Date Time Temp Pulse Resp B/P Pulse Ox O2 Delivery O2 Flow Rate FiO2 12/12/16 07:30 36.5 71 18 101/61 100 Room Air 12/12/16 07:13 Room Air 12/12/16 03:43 36.7 62 14 110/61 97 Room Air 12/11/16 23:54 Room Air 12/11/16 23:40 36.9 84 16 102/66 96 Room Air 12/11/16 21:33 37.1 71 18 104/65 96 Room Air 12/11/16 20:34 36.9 80 18 110/67 95 Room Air 12/11/16 20:17 Nasal Cannula 2.0 12/11/16 20:09 Nasal Cannula 2.0 Notes Mental Status: alert / awake / arousable, participated in evaluation Pt Amnestic to Procedure: Yes Nausea / Vomiting: adequately controlled Pain: adequately controlled Airway Patency, RR, SpO2: stable & adequate BP & HR: stable & adequate Hydration State: stable & adequate Anesthetic Complications: no major complications apparent
[2016-12-12] MEDS: CHECK FENTANYL PATCH PLACEMENT SCH ×4 (08:03→23:49)
[2016-12-12] MEDS: NICOTINE 21 MG/24 HR TDSY TD SCH (08:10)
[2016-12-12] MEDS: DOCUSATE SODIUM 100 MG CAP PO SCH ×2 (08:10→21:36)
--- NOTE | 2016-12-12 08:13 | Orthopedic Progress Note ---
Orthopedic Progress Note Date of Service Dec 12, 2016. Subjective Post OP Day: 1 Reports: feeling well, Denies: SOB, calf pain, chest pain, light headedness, nausea / vomiting Objective calves soft nontender, N/V intact, capillary refill less than 2 sec., dressing C /D/I, incision C/D/I, A&O x3 Date Time Temp Pulse Resp B/P Pulse Ox O2 Delivery O2 Flow Rate FiO2 12/12/16 07:30 36.5 71 18 101/61 100 Room Air 12/12/16 07:13 Room Air 12/12/16 03:43 36.7 62 14 110/61 97 Room Air 12/11/16 23:54 Room Air 12/11/16 23:40 36.9 84 16 102/66 96 Room Air 12/11/16 21:33 37.1 71 18 104/65 96 Room Air 12/11/16 20:34 36.9 80 18 110/67 95 Room Air 12/11/16 20:17 Nasal Cannula 2.0 12/11/16 20:09 Nasal Cannula 2.0 12/11/16 19:19 36.7 85 18 113/67 97 Nasal Cannula 2.0 12/11/16 19:05 36.9 81 12 116/68 96 Nasal Cannula 2.0 12/11/16 18:15 37.1 79 16 118/75 100 Nasal Cannula 2.0 12/11/16 17:55 68 16 129/73 98 Nasal Cannula 3 12/11/16 17:45 36.6 73 16 129/78 98 Nasal Cannula 3 12/11/16 17:35 77 16 135/87 100 Nasal Cannula 3 12/11/16 17:25 66 16 136/88 100 Mask 10 12/11/16 17:15 67 16 131/91 100 Mask 10 12/11/16 17:12 36.4 65 16 131/84 100 Mask 10 12/11/16 09:53 100 Room Air Laboratory Results 24 Hours: Test 12/12/16 06:51 White Blood Count 11.95 K/uL Red Blood Count 4.16 M/uL Hemoglobin 12.5 g/dL Hematocrit 35.5 % Mean Corpuscular Volume 85.3 fL Mean Corpuscular Hemoglobin 30.0 pg Mean Corpuscular Hemoglobin Concent 35.2 g/dl Platelet Count 176 K/uL Mean Platelet Volume 11.0 fL Neutrophils (%) (Auto) 74.6 % Lymphocytes (%) (Auto) 10.3 % Monocytes (%) (Auto) 14.1 % Eosinophils (%) (Auto) 0.5 % Basophils (%) (Auto) 0.2 % Neutrophils # (Auto) 8.92 K/uL Lymphocytes # (Auto) 1.23 K/uL Monocytes # (Auto) 1.68 K/uL Eosinophils # (Auto) 0.06 K/uL Basophils # (Auto) 0.02 K/uL Assessment & Plan Assessment: pod#1 s/p right wrist I &D flexor tenosynovitis, CTR Plan: continue strict elevation. May remove to do ROM, but resume Elevation Continue abx, will await cultures. Dressing changed today Inhouse Planning Pain Management: Morphine, PO Tylenol DVT Prophylaxis: Lovenox Discharge Planning Discharge Planning: uncertain
[2016-12-12 13:28] VITALS: BP 112/68; PULSE 73; TEMP 36.8; O2SAT 99
--- NOTE | 2016-12-12 14:18 | Progress Note ---
Subjective Date of Service: Dec 12, 2016. Subjective Pt evaluation today including: conversation w/ patient, conversation w/ family , physical exam, chart review, lab review, review of studies, review of inpatient medication list Right wrist pain much better controlled, local swelling and hot is better, patient is happy about the care, able to move his fingers without significant pain No fever and chill, eating/ voiding good, Problem List Medical Problems: (1) Cellulitis Status: Acute (2) Infection of flexor tendon sheath Status: Acute (3) Knee pain Status: Acute (4) Puncture wound of right wrist without foreign body Status: Acute Review of Systems Constitutional: No chills, No fatigue, No fever, No problem reported, No sweats , No weakness, No weight loss Eyes: No diplopia, No discharge, No eye pain, No redness, No worsening of vision ENT: No dental problems, No hearing loss, No nasal symptoms, No sore throat, No tinnitus, No trouble swallowing, No unusual epistaxis Respiratory: No cough, No dyspnea at rest, No dyspnea on exertion, No hemoptysis, No shortness of breath, No sputum, No wheezing Cardiac: No PND, No chest pain, No claudication, No edema, No orthopnea, No palpitations Abdomen: No constipation, No diarrhea, No nausea, No pain, No vomiting Musculoskeletal: + joint pain (is better), No calf pain, No muscle pain, No swelling Male : No dysuria, No hematuria, No incontinence, No nocturia more than once/ night, No slowing stream, No urinary frequency Neurologic: No balance problems, No memory loss, No numbness/tingling, No paralysis, No vertigo, No weakness Psychiatric: No anhedonism, No anxiety, No depression symptoms, No insomnia, No substance abuse Heme: No abnormal bleeding/bruising, No clotting problems, No night sweats, No swollen lymph nodes Endo: No excessive thirst, No excessive urination, No fatigue Skin: No bleeding, No color change, No itch, No new/changing skin lesions, No rash Objective Vital Signs Date Time Temp Pulse Resp B/P Pulse Ox O2 Delivery O2 Flow Rate FiO2 12/12/16 13:28 36.8 73 16 112/68 99 Room Air 12/12/16 07:30 36.5 71 18 101/61 100 Room Air 12/12/16 07:13 Room Air 12/12/16 03:43 36.7 62 14 110/61 97 Room Air 12/11/16 23:54 Room Air 12/11/16 23:40 36.9 84 16 102/66 96 Room Air 12/11/16 21:33 37.1 71 18 104/65 96 Room Air 12/11/16 20:34 36.9 80 18 110/67 95 Room Air 12/11/16 20:17 Nasal Cannula 2.0 12/11/16 20:09 Nasal Cannula 2.0 12/11/16 19:19 36.7 85 18 113/67 97 Nasal Cannula 2.0 12/11/16 19:05 36.9 81 12 116/68 96 Nasal Cannula 2.0 12/11/16 18:15 37.1 79 16 118/75 100 Nasal Cannula 2.0 12/11/16 17:55 68 16 129/73 98 Nasal Cannula 3 12/11/16 17:45 36.6 73 16 129/78 98 Nasal Cannula 3 12/11/16 17:35 77 16 135/87 100 Nasal Cannula 3 12/11/16 17:25 66 16 136/88 100 Mask 10 12/11/16 17:15 67 16 131/91 100 Mask 10 12/11/16 17:12 36.4 65 16 131/84 100 Mask 10 Physical Exam General Appearance: WD/WN, no apparent distress Eyes: normal inspection, PERRL, EOMI, sclerae normal ENT: normal ENT inspection, hearing grossly normal, pharynx normal Neck: supple, no adenopathy, thyroid normal, no JVD, no carotid bruits, trachea midline Respiratory/Chest: chest non-tender, lungs clear, normal breath sounds, no respiratory distress, no accessory muscle use Cardiovascular: regular rate, rhythm, no edema, no gallop, no JVD, no murmur Abdomen: normal bowel sounds, non tender, soft, no organomegaly, no pulsatile mass Extremities: normal inspection, no pedal edema, no calf tenderness, normal capillary refill, pelvis stable, + pertinent finding (right wrist in dressing, local range of motion is significantly improved, fingers has no swelling, cap refill is normal within 2 seconds,) Neurologic/Psychiatric: sediment remediation consultant II-XII nml as tested, no motor/sensory deficits, alert, normal mood/affect, oriented x 3 Skin: normal color, warm/dry, no rash Lymphatic: no adenopathy Laboratory Results Last 24 Hours Test 12/12/16 06:51 White Blood Count 11.95 K/uL Red Blood Count 4.16 M/uL Hemoglobin 12.5 g/dL Hematocrit 35.5 % Mean Corpuscular Volume 85.3 fL Mean Corpuscular Hemoglobin 30.0 pg Mean Corpuscular Hemoglobin Concent 35.2 g/dl Platelet Count 176 K/uL Mean Platelet Volume 11.0 fL Neutrophils (%) (Auto) 74.6 % Lymphocytes (%) (Auto) 10.3 % Monocytes (%) (Auto) 14.1 % Eosinophils (%) (Auto) 0.5 % Basophils (%) (Auto) 0.2 % Neutrophils # (Auto) 8.92 K/uL Lymphocytes # (Auto) 1.23 K/uL Monocytes # (Auto) 1.68 K/uL Eosinophils # (Auto) 0.06 K/uL Basophils # (Auto) 0.02 K/uL RDW Standard Deviation 40.6 fL RDW Coefficient of Variation 13.0 % Immature Granulocyte % (Auto) 0.3 % Immature Granulocyte # (Auto) 0.04 K/uL Sodium Level 142 mmol/L Potassium Level 4.3 mmol/L Chloride Level 110 mmol/L Carbon Dioxide Level 24 mmol/L Anion Gap 8.0 mmol/L Blood Urea Nitrogen 11 mg/dl Creatinine 0.84 mg/dl Est Creatinine Clear Calc Drug Dose 182.6 ml/min Estimated GFR () 137.1 Estimated GFR (Non- 118.3 BUN/Creatinine Ratio 13.0 Random Glucose 118 mg/dl Calcium Level 8.3 mg/dl Magnesium Level 2.2 mg/dl Assessment and Plan 31-year-old white male admitted on 12/09/2016 because of severe cellulitis/ Right Wrist Abscess: Right wrist cellulitis with ascending lymphangitis status post puncture wound with old metal screw Right Wrist Abscess pod#1 s/p right wrist I &D flexor tenosynovitis, CTR Per recommend from orthopedic, continue strict elevation., may remove to do ROM , but resume Elevation Continue abx, f/u await cultures. Continue on vancomycin/zosyn, add clindamycin, infectious disease input appreciated, Tobacco abuse disorder, counseling quit smoking, continue nicotine patch DVT prophylaxis, Discussed with patient and family answered all the questions right wrist MRI per report on 12/10/2016 1. Subcutaneous and deep soft tissue edema and enhancement along the volar side of the wrist consistent with a cellulitis/fasciitis. There is also mild edema and enhancement at the musculotendinous junctions of the volar tendons consistent with an associated myositis. In addition, immediately superficial to and abutting the volar tendons of the wrist there is a 7 x 2 mm peripheral enhancing loculated fluid collection. This is deep to the flexor retinaculum and is concerning for a small abscess. 2. Small joint effusion within the wrist. There is no abnormal signal intensity within the bones of the wrist to suggest an associated septic arthritis or osteomyelitis at this time. 3. No fracture or dislocation within the wrist. Continued [facility] [place] stay due to: multiple IV medications needed Discharge planning: home
[2016-12-12 15:34] VITALS: BP 109/66; PULSE 85; TEMP 36.7; O2SAT 97
[2016-12-12] MEDS: ACETAMINOPHEN 325 MG TAB PO PRN (16:18)
[2016-12-12] MEDS: LORAZEPAM INJ 0.5 MG in SYRINGE 0.75 ML IV PRN (18:23)
--- NOTE | 2016-12-12 19:33 | Infectious Disease Progress Nt ---
Progress Note Date of Service Dec 12, 2016. Subjective Pt evaluation today including: conversation w/ patient, physical exam, chart review, lab review, review of studies, conversation w/ data migration consultant, review of inpatient medication list Patient feeling better post drainage of abscess. Pain less. No fever. Operative cultures are pending. All Other Systems: Reviewed and Negative Medications Current Inpatient Medications Medications (Trade) Dose Ordered Sig/Ulises Route Start Time Stop Time Status Last Admin Dose Admin Vancomycin HCl (Consult) 1 ea DAILY PRN N/A 12/09/16 21:27 12/19/16 23:59 Acetaminophen (Tylenol Tab) 650 mg Q4H PRN PO 12/09/16 21:00 01/08/17 20:59 12/12/16 16:18 650 MG Zolpidem Tartrate (Ambien Tab) 5 mg HSZ PRN PO 12/09/16 21:00 01/08/17 20:59 Lorazepam (Ativan Inj) 0.5 mg Q4H PRN IV 12/09/16 21:00 01/08/17 20:59 Magnesium Hydroxide (Milk Of Magnesia Susp) 30 ml Q6H PRN PO 12/09/16 21:00 01/08/17 20:59 Diphenhydramine HCl (Benadryl Inj) 25 mg Q4H PRN IV 12/09/16 21:00 01/08/17 20:59 Al Hydrox/Mg Hydrox/ Simethicone 15 ml 15 ml Q4H PRN PO 12/09/16 21:00 01/08/17 20:59 Promethazine HCl/ Sodium Chloride (Phenergan Inj/ Nss 50ml) 50.5 ml @ 202 mls/hr Q4H PRN IV 12/09/16 21:00 01/08/17 20:59 Ondansetron HCl 4 mg 4 mg Q6H PRN IV 12/09/16 21:00 01/08/17 20:59 Lorazepam 0.5 mg/ Syringe 1 ml @ 1 mls/min Q4H PRN IV 12/09/16 22:30 01/08/17 22:29 12/12/16 18:23 1 MLS/MIN Piperacillin Sod/ Tazobactam Sod/ Dextrose (Zosyn Iv/D5 100ml) 115 ml @ 28.75 mls/ hr Q8H IV 12/10/16 04:00 12/20/16 03:59 12/12/16 12:23 28.75 MLS/HR Piperacillin Sod/ Tazobactam Sod (Consult) 1 ea UD PRN N/A 12/09/16 22:45 01/08/17 22:44 Docusate Sodium (coLACE CAP) 100 mg BID PO 12/10/16 21:00 01/09/17 20:59 12/12/16 08:10 100 MG Nicotine (Nicoderm Cq 21MG Patch) 1 patch QAM TD 12/11/16 09:00 01/10/17 08:59 12/12/16 08:10 1 PATCH Miscellaneous (Remove Nicoderm Patch) 1 ea HS N/A 12/11/16 21:00 01/10/17 20:59 12/11/16 21:00 1 EA Morphine Sulfate (MoRPHine SULFATE INJ) 2 mg Q2H PRN IV 12/10/16 10:15 12/23/16 20:59 12/11/16 22:19 2 MG Morphine Sulfate (MoRPHine SULFATE INJ) 4 mg Q2H PRN IV 12/10/16 16:30 12/24/16 16:29 12/12/16 18:23 4 MG Fentanyl (Duragesic Patch) 12 mcg Q72H TD 12/10/16 17:00 12/24/16 16:59 12/10/16 18:19 12 MCG Miscellaneous (Fentanyl Patch Remove & Waste) 1 ea Q3D N/A 12/13/16 16:45 01/12/17 16:44 Miscellaneous Information (Check Fentanyl Patch Placement) 1 ea QS N/A 12/11/16 00:00 01/10/17 00:00 12/12/16 16:13 1 EA Gadobutrol 11.5 mmol 11.5 mmol UD PRN IV 12/10/16 22:00 12/14/16 21:59 Vancomycin HCl/ Sodium Chloride (Vancomycin Inj/ Nss 500ml) 538 ml @ 200 mls/hr Q8H IV 12/11/16 16:00 12/19/16 23:59 12/12/16 16:18 200 MLS/HR Objective Vital Signs Date Time Temp Pulse Resp B/P Pulse Ox O2 Delivery O2 Flow Rate FiO2 12/12/16 15:34 36.7 85 18 109/66 97 Room Air 12/12/16 13:28 36.8 73 16 112/68 99 Room Air 12/12/16 07:30 36.5 71 18 101/61 100 Room Air 12/12/16 07:13 Room Air 12/12/16 03:43 36.7 62 14 110/61 97 Room Air 12/11/16 23:54 Room Air 12/11/16 23:40 36.9 84 16 102/66 96 Room Air 12/11/16 21:33 37.1 71 18 104/65 96 Room Air 12/11/16 20:34 36.9 80 18 110/67 95 Room Air 12/11/16 20:17 Nasal Cannula 2.0 12/11/16 20:09 Nasal Cannula 2.0 Physical Exam General Appearance: WD/WN, no apparent distress Eyes: normal inspection, sclerae normal ENT: normal ENT inspection, hearing grossly normal, pharynx normal Neck: supple, no adenopathy, trachea midline Respiratory/Chest: chest non-tender, lungs clear, normal breath sounds, no respiratory distress Cardiovascular: regular rate, rhythm, no gallop, no murmur Abdomen: normal bowel sounds, non tender, soft, no organomegaly Extremities: non-tender, no calf tenderness, normal capillary refill Neurologic/Psychiatric: alert, oriented x 3 Skin: normal color, no rash, + pertinent finding (Surgical dressing intact right wrist) Lymphatic: no adenopathy Laboratory Results Last 24 Hours Test 12/12/16 06:51 White Blood Count 11.95 K/uL Red Blood Count 4.16 M/uL Hemoglobin 12.5 g/dL Hematocrit 35.5 % Mean Corpuscular Volume 85.3 fL Mean Corpuscular Hemoglobin 30.0 pg Mean Corpuscular Hemoglobin Concent 35.2 g/dl Platelet Count 176 K/uL Mean Platelet Volume 11.0 fL Neutrophils (%) (Auto) 74.6 % Lymphocytes (%) (Auto) 10.3 % Monocytes (%) (Auto) 14.1 % Eosinophils (%) (Auto) 0.5 % Basophils (%) (Auto) 0.2 % Neutrophils # (Auto) 8.92 K/uL Lymphocytes # (Auto) 1.23 K/uL Monocytes # (Auto) 1.68 K/uL Eosinophils # (Auto) 0.06 K/uL Basophils # (Auto) 0.02 K/uL RDW Standard Deviation 40.6 fL RDW Coefficient of Variation 13.0 % Immature Granulocyte % (Auto) 0.3 % Immature Granulocyte # (Auto) 0.04 K/uL Sodium Level 142 mmol/L Potassium Level 4.3 mmol/L Chloride Level 110 mmol/L Carbon Dioxide Level 24 mmol/L Anion Gap 8.0 mmol/L Blood Urea Nitrogen 11 mg/dl Creatinine 0.84 mg/dl Est Creatinine Clear Calc Drug Dose 182.6 ml/min Estimated GFR () 137.1 Estimated GFR (Non- 118.3 BUN/Creatinine Ratio 13.0 Random Glucose 118 mg/dl Calcium Level 8.3 mg/dl Magnesium Level 2.2 mg/dl Assessment and Plan Cellulitis and lymphangitis right wrist and arm, with small abscess on MRI, now status post debridement and drainage of abscess. Operative cultures are pending. Patient to be continued on Zosyn pending final operative cultures. We will continue to follow.
[2016-12-12 23:10] VITALS: BP 105/64; PULSE 62; TEMP 36.7; O2SAT 98
[2016-12-13] MEDS: MoRPHine SULFATE 4 MG/ML 1 ML CARP\\VIAL IV PRN ×3 (02:21→10:20)
[2016-12-13] MEDS: PIPERACILL/TAZOBAC IV 3.375 GM in DEXTROSE 5% 100ML IV SCH ×3 (05:05→21:29)
[2016-12-13] MEDS: ACETAMINOPHEN 325 MG TAB PO PRN (05:06)
[2016-12-13 07:03] VITALS: BP 106/63; PULSE 76; TEMP 36.6; O2SAT 100
[2016-12-13] MEDS ORDERED: VANCOMYCIN TROUGH SCH (07:30)
[2016-12-13 07:45] LABS: HEMATOCRIT 37.2 % (42-52); MEAN CELL VOLUME 88.8 fL (80-100); MEAN CORPUSCULAR HEMOGLOBIN 29.4 pg (25-34); MEAN CORPUSCULAR HGB CONC 33.1 g/dl (32-36); MEAN PLATELET VOLUME 11.1 fL (7.4-10.4); PLATELET COUNT 141 K/uL (130-400); RED BLOOD COUNT 4.19 M/uL (4.7-6.1)
[2016-12-13] MEDS: CHECK FENTANYL PATCH PLACEMENT SCH ×2 (08:00→15:47)
[2016-12-13 08:21] LABS: CREATININE 0.95 mg/dl (0.60-1.40)
[2016-12-13] MEDS: DOCUSATE SODIUM 100 MG CAP PO SCH ×2 (09:53→21:00)
[2016-12-13] MEDS: NICOTINE 21 MG/24 HR TDSY TD SCH (09:55)
[2016-12-13] MEDS: VANCOMYCIN INJ 1,900 MG in SODIUM CHLORIDE 0.9% 500ML 500 ML IV SCH (10:20)
--- NOTE | 2016-12-13 11:33 | Pharmacy Progress Note ---
Pharmacy Antibiotic Prog Note Date of Service: Dec 13, 2016. Subjective: The patient is currently receiving Vancomycin/Zosyn IV. The patient is currently on day # 5 of therapy. Objective: Height (Feet): 6 Height (Inches): 5.00 Weight (Kilograms): 115.000 Levels: Item Value Date Time Vancomycin Level Trough 20.8 mcg/ml 12/13/16 0732 Lab Results (24hrs): Laboratory Tests Test 12/13/16 07:32 Creatinine 0.95 mg/dl White Blood Count 7.20 K/uL Micro Results: Item Value Date Time Gram Stain - Final Resulted 12/11/16 1644 Drainage-Deep Wrist Right Bacillus species Gram Stain - Final Resulted 12/11/16 1643 Drainage-Deep Wrist Right NO GROWTH TO DATE Blood Culture - Preliminary Resulted 12/10/16 1055 Blood NO GROWTH TO DATE. Blood Culture - Preliminary Resulted 12/10/16 1043 Blood NO GROWTH TO DATE. Assessment & Plan: ASSESSMENT: * 31 y/o male with right wrist cellulitis/lymphangitis resulting from a puncture with an old/yudelka screw in a rabbit cage. Infection persisted despite Keflex therapy (only on Keflex for short time, may not be treatment failure) * Ceftriaxone 1g IV x1 given in ED prior to admission PLAN * Broad-spectrum ABX in the form of vancomycin and piperacillin/tazobactam Vancomycin: * Loading dose: 2200 mg IV X 1 dose * Maintenance dose: 1900 mg IV every 8 hours * Steady-state trough level today was slightly supratherapeutic (20.8 mcg/mL) * Decrease dose to 1750mg IV q8h * No further levels have been ordered at this time. Expect that vancomycin may be discontinued when cx reviewed by ID service. If vancomycin continues, pharmacy will re-assess the need for additional monitoring in a couple of days. Piperacillin/tazobactam: * Loading dose: 3.375 g IV x1 dose (infused over 30 minutes) * Maintenance dose: 3.375 g IV every 8 hours (infused over 4 hours) * No dose adjustment needed for CrCl above 20mL/min Clindamycin: * 900mg IV q8h for anti-toxin effects x48hr -- finished yesterday (12/12) May consider: * De-escalation of piperacillin/tazobactam to ampicillin/sulbactam (may not need pseudomonal coverage) * De-escalation of piperacillin/tazobactam to ceftriaxone (may not need pseudomonal or anaerobic coverage) Pharmacy will continue to follow and will adjust dose/frequency as necessary. Thank you
[2016-12-13] MEDS ORDERED: FENTANYL PATCH REMOVE & WASTE SCH ×2 (11:44→16:45)
[2016-12-13] MEDS ORDERED: FENTANYL 25 MCG/HR TDSY TD SCH (11:45)
[2016-12-13] MEDS: OXYCODONE/ACETAMINOPHEN 10/325MG TAB PO PRN ×3 (12:32→21:29)
[2016-12-13] MEDS: KETOROLAC TROMETHAMINE 30 MG/ML VIAL IV PRN ×2 (14:19→21:23)
[2016-12-13 15:59] VITALS: BP 106/69; PULSE 84; TEMP 36.7; O2SAT 98
--- NOTE | 2016-12-13 17:51 | Hospitalist Progress Note ---
Hospitalist Progress Note Date of Service Dec 13, 2016. Subjective Pt evaluation today including: conversation w/ patient, conversation w/ family , physical exam, chart review, lab review, review of studies, review of inpatient medication list Patient reports that the Morphine is not lasting more than 1 hour for pain control. He declines having N/V. No dizziness, constipation, lightheadedness or SOB. Later in the day, the patients visited and I returned to his room and updated her at the patients request. Additional Comments: A 10 system review was performed and all were negative. Positives were placed in the subjective section. Objective Vital Signs Date Time Temp Pulse Resp B/P Pulse Ox O2 Delivery O2 Flow Rate FiO2 12/13/16 15:59 36.7 84 18 106/69 98 Room Air 12/13/16 08:20 Room Air 12/13/16 07:03 36.6 76 16 106/63 100 Room Air 12/12/16 23:18 Room Air 12/12/16 23:10 36.7 62 16 105/64 98 Room Air Physical Exam Notes: GEN: Awake, alert, and oriented x 3. Not in acute distress HEENT: Tm's intact, no inflammation, EOMI, PERRLA, MMM Neck: Soft, supple Lungs: CTA b/l, no r/r/w Heart: REG, nrl S1S2 without murmurs, rubs or gallops Abdomen: Soft, NT, ND, + BS EXT: No C/C/E. Right wrist and lower arm is dressed. NEURO: CN's II-XII grossly intact, non-focal Skin: warm, dry, no rashes PSYCH: pleasant, cooperative, but reports feeling a bit confined. Laboratory Results Last 24 Hours Test 12/13/16 07:32 White Blood Count 7.20 K/uL Red Blood Count 4.19 M/uL Hemoglobin 12.3 g/dL Hematocrit 37.2 % Mean Corpuscular Volume 88.8 fL Mean Corpuscular Hemoglobin 29.4 pg Mean Corpuscular Hemoglobin Concent 33.1 g/dl RDW Standard Deviation 44.6 fL RDW Coefficient of Variation 13.6 % Platelet Count 141 K/uL Mean Platelet Volume 11.1 fL Creatinine 0.95 mg/dl Est Creatinine Clear Calc Drug Dose 161.4 ml/min Estimated GFR () 124.9 Estimated GFR (Non- 107.7 Vancomycin Level Trough 20.8 mcg/ml Assessment and Plan 1) Right wrist and arm cellulitis secondary to puncture wound 2) Right arm ascending lymphangitis 3) Right wrist abscess within the carpal tunnel 4) Flexor tenosynovitis of the FDS tendon, right. S/P I&D right wrist in the carpal tunnel - culture of abscess in process, elevation of right lower arm, ROM exercises, IV Vancomycin, IV Zosyn. 5) Pain control - Morphine D/C'd. Tylenol for mild pain or fever, Toradol IV for moderate pain, Oxycodone/APAP 10/325mg for severe pain. Increased Duragesic patch to 25mcg 6) Nicotine abuse - Nicotine patch DVT prophylaxis - TEDs and SCDs.
--- NOTE | 2016-12-13 18:20 | PROGRESS NOTE ---
DATE: 12/13/2016 SUBJECTIVE: Severo is seen at the bedside today status post I\T\D, he is doing well. No new complaints. He denies any numbness in the hand. OBJECTIVE: Right hand exam has well-healed surgical incision. No gross pus. He has resolution of infection. He has supple motion of the digits, negative Knavel sign. ASSESSMENT: Postop day 2 incision and drainage abscess in the carpal tunnel with flexor tenosynovectomy. PLAN: At this point, he is doing well. I do not anticipate any further surgical treatment. May continue dry sterile dressing changes. He should follow up with me in 10-14 days from the date of the surgery. I will defer antibiotic to infectious disease. Cultures so far showed bacillus. Will sign off. Please call if you have any questions.
[2016-12-13] MEDS: VANCOMYCIN INJ 1,750 MG in SODIUM CHLORIDE 0.9% 500ML 500 ML IV SCH (18:35)
[2016-12-13] MEDS: LORAZEPAM INJ 0.5 MG in SYRINGE 0.75 ML IV PRN (21:28)
[2016-12-13 23:01] VITALS: BP 103/63; PULSE 77; TEMP 36.8; O2SAT 97
[2016-12-14] MEDS: CHECK FENTANYL PATCH PLACEMENT SCH ×4 (00:07→23:52)
[2016-12-14] MEDS: VANCOMYCIN INJ 1,750 MG in SODIUM CHLORIDE 0.9% 500ML 500 ML IV SCH ×3 (00:07→15:33)
[2016-12-14] MEDS: KETOROLAC TROMETHAMINE 30 MG/ML VIAL IV PRN ×3 (03:39→18:49)
[2016-12-14] MEDS: LORAZEPAM INJ 0.5 MG in SYRINGE 0.75 ML IV PRN ×2 (03:40→21:42)
[2016-12-14] MEDS: OXYCODONE/ACETAMINOPHEN 10/325MG TAB PO PRN ×5 (03:40→21:22)
[2016-12-14] MEDS: PIPERACILL/TAZOBAC IV 3.375 GM in DEXTROSE 5% 100ML IV SCH ×3 (07:44→23:52)
[2016-12-14] MEDS: PANTOprazole SOD 40 MG TAB PO SCH (07:57)
[2016-12-14] MEDS: DOCUSATE SODIUM 100 MG CAP PO SCH ×2 (07:57→21:00)
[2016-12-14 08:08] VITALS: BP 103/67; PULSE 66; TEMP 36.6; O2SAT 99
[2016-12-14 08:13] LABS: BASO % 0.8 %; BASO ABS # 0.05 K/uL (0-0.2); COMPLETE YES; EOS % 7.3 %; HEMATOCRIT 36.7 % (42-52); IG% 0.3 %; LYMPH % 31.8 %; LYMPH ABS # 1.99 K/uL (1.2-3.4); MEAN CELL VOLUME 88.6 fL (80-100); MEAN CORPUSCULAR HGB CONC 33.8 g/dl (32-36); MEAN PLATELET VOLUME 11.2 fL (7.4-10.4); NEUT % 48.8 %; PLATELET COUNT 170 K/uL (130-400); RED BLOOD COUNT 4.14 M/uL (4.7-6.1); WHITE BLOOD COUNT 6.26 K/uL (4.8-10.8)
[2016-12-14 08:58] LABS: BUN/CREATININE RATIO 13.5 (10-20); CALCIUM 8.4 mg/dl (8.5-10.1); CREATININE 0.95 mg/dl (0.60-1.40); POTASSIUM 4.3 mmol/L (3.5-5.1)
[2016-12-14] MEDS: NICOTINE 21 MG/24 HR TDSY TD SCH (09:00)
[2016-12-14 16:01] VITALS: BP 105/61; PULSE 70; TEMP 36.8; O2SAT 100
--- NOTE | 2016-12-14 18:55 | Hospitalist Progress Note ---
Hospitalist Progress Note Date of Service Dec 14, 2016. Subjective Pt evaluation today including: conversation w/ patient, physical exam, chart review, lab review, review of studies, review of inpatient medication list Patient reports having less pain than he has for days. He feels that the Toradol works the best for him. Unfortunately, today is day #2 of total of #5 day usage for this medication (consecutively). No fever or chills. He has better range of motion today. Additional Comments: A 10 system review was performed and all were negative. Positives were placed in the subjective section. Objective Vital Signs Date Time Temp Pulse Resp B/P Pulse Ox O2 Delivery O2 Flow Rate FiO2 12/14/16 16:01 36.8 70 17 105/61 100 Room Air 12/14/16 16:00 Room Air 12/14/16 08:08 36.6 66 18 103/67 99 Room Air 12/14/16 07:40 Room Air 12/14/16 00:18 Room Air 12/13/16 23:01 36.8 77 16 103/63 97 Room Air Physical Exam Notes: GEN: Awake, alert, and oriented x 3. Not in acute distress HEENT: Tm's intact, no inflammation, EOMI, PERRLA, MMM Neck: Soft, supple Lungs: CTA b/l, no r/r/w Heart: REG, nrl S1S2 without murmurs, rubs or gallops Abdomen: Soft, NT, ND, + BS EXT: No C/C/E Right wrist dressing in place. NEURO: CN's II-XII grossly intact, non-focal Skin: warm, dry, no rashes PSYCH: pleasant, cooperative, no signs of significant anxiety or depression. Laboratory Results Last 24 Hours Test 12/14/16 07:43 White Blood Count 6.26 K/uL Red Blood Count 4.14 M/uL Hemoglobin 12.4 g/dL Hematocrit 36.7 % Mean Corpuscular Volume 88.6 fL Mean Corpuscular Hemoglobin 30.0 pg Mean Corpuscular Hemoglobin Concent 33.8 g/dl Platelet Count 170 K/uL Mean Platelet Volume 11.2 fL Neutrophils (%) (Auto) 48.8 % Lymphocytes (%) (Auto) 31.8 % Monocytes (%) (Auto) 11.0 % Eosinophils (%) (Auto) 7.3 % Basophils (%) (Auto) 0.8 % Neutrophils # (Auto) 3.05 K/uL Lymphocytes # (Auto) 1.99 K/uL Monocytes # (Auto) 0.69 K/uL Eosinophils # (Auto) 0.46 K/uL Basophils # (Auto) 0.05 K/uL RDW Standard Deviation 44.3 fL RDW Coefficient of Variation 13.5 % Immature Granulocyte % (Auto) 0.3 % Immature Granulocyte # (Auto) 0.02 K/uL Sodium Level 142 mmol/L Potassium Level 4.3 mmol/L Chloride Level 109 mmol/L Carbon Dioxide Level 26 mmol/L Anion Gap 7.0 mmol/L Blood Urea Nitrogen 13 mg/dl Creatinine 0.95 mg/dl Est Creatinine Clear Calc Drug Dose 161.4 ml/min Estimated GFR () 124.9 Estimated GFR (Non- 107.7 BUN/Creatinine Ratio 13.5 Random Glucose 85 mg/dl Calcium Level 8.4 mg/dl Assessment and Plan 1) Right wrist and arm cellulitis secondary to puncture wound - Will ask Infectious disease for recommendation on antibiotic and duration. 2) Right arm ascending lymphangitis 3) Right wrist abscess within the carpal tunnel 4) Flexor tenosynovitis of the FDS tendon, right. S/P I&D right wrist in the carpal tunnel - elevation of right lower arm, ROM exercises, IV Zosyn. 5) Pain control - improved. 6) Nicotine abuse - Nicotine patch DVT prophylaxis - TEDs and SCDs. Anticipating discharge friday
[2016-12-14 22:40] VITALS: BP 121/74; PULSE 67; TEMP 36.7; O2SAT 97
[2016-12-15 07:48] VITALS: BP 125/73; PULSE 69; TEMP 36.8; O2SAT 100
[2016-12-15] MEDS: DOCUSATE SODIUM 100 MG CAP PO SCH ×2 (08:10→21:36)
[2016-12-15] MEDS: NICOTINE 21 MG/24 HR TDSY TD SCH (08:11)
[2016-12-15] MEDS: CHECK FENTANYL PATCH PLACEMENT SCH ×2 (08:11→16:01)
[2016-12-15] MEDS: PANTOprazole SOD 40 MG TAB PO SCH (08:12)
[2016-12-15] MEDS: PIPERACILL/TAZOBAC IV 3.375 GM in DEXTROSE 5% 100ML IV SCH ×2 (08:16→16:00)
[2016-12-15] MEDS: KETOROLAC TROMETHAMINE 30 MG/ML VIAL IV PRN ×4 (08:16→20:29)
[2016-12-15] MEDS: OXYCODONE/ACETAMINOPHEN 10/325MG TAB PO PRN ×3 (10:31→19:09)
[2016-12-15 15:51] VITALS: BP 129/75; PULSE 105; TEMP 36.7; O2SAT 98
[2016-12-15] MEDS ORDERED: LEVO1TAB35 PO (19:57)
[2016-12-15] MEDS ORDERED: IBUP-1451 PO (19:57)
[2016-12-15] MEDS ORDERED: OXYC-88 PO (19:57)
[2016-12-15] MEDS ORDERED: DRGTP25 TD (19:57)
[2016-12-15] MEDS ORDERED: SNK PO (19:57)
--- NOTE | 2016-12-15 20:05 | Discharge Instructions ---
Discharge Instructions Admission Reason for Admission: Puncture Rt Wrist, Red, Swollen, Fever Discharge Discharge Diagnosis / Problem: R wrist abscess/ R wrist and arm cellulitis Discharge Goals Goal(s): Decrease discomfort, Improve disease control Activity Recommendations Activity Limitations: as noted below No lifting with right hand or right wrist. Do range of motion exercises as in the hospital. Keep dressing in place to prevent contamination. . Instructions / Follow-Up Instructions / Follow-Up Take all of your antibiotic. Follow up with your PCP in 5-7 days Follow up with Infectious disease, Dr. Jessee Low in 10-14 days - call office for appointment. Call to orthopedists office and ask if they want to see you in hospital follow up. You would benefit from hand and wrist physical therapy. I will ask social service to evaluate insurance appropriateness. Current Hospital Diet Patient's current hospital diet: Regular Diet Discharge Diet Recommended Diet: Regular Diet Procedures Procedures Performed: irrigation and debridement of right wrist carpul tunnel abscess and flexor tenosynovectomy Pending Studies Studies pending at discharge: no Medical Emergencies . Who to Call and When: Medical Emergencies: If at any time you feel your situation is an emergency, please call 911 immediately. . Non-Emergent Contact Non-Emergency issues call your: Primary Care Provider . . "Provider Documentation" section prepared by Mario Perdomo. VTE Core Measure Inpt VTE Proph given/why not?: SCD's
--- NOTE | 2016-12-15 20:29 | Discharge Summary ---
Discharge Summary Date of Service Dec 15, 2016. Discharge Summary Admission Date: Dec 09, 2016 at 20:48 Discharge Date: Dec 16, 2016 Discharge Disposition: Home Principal Diagnosis: Abscess right wrist Problems/Secondary Diagnoses: Cellulitis right wrist and arm/ puncture wound Procedures: PROCEDURE: 1. Right wrist I\T\D abscess, deep, in carpal tunnel. 2. Right wrist flexor tenosynovectomy of the FDS tendons in the wrist. SURGEON: Bandar Copeland MD Consultations: Orthopedic surgery, Bandar Copeland M.D. Infectious disease, Jessee Low M.D. Medication Reconciliation New Medications: Ibuprofen Tab (Motrin) 800 Mg Tab 1 TAB PO TID for 10 Days, #30 TAB NS Levofloxacin (Levaquin) 750 Mg Tab 750 MG PO DAILY for 14 Days, #14 TAB NS Senna (Senna Lax) 8.6 Mg Tab 2 TABS PO HS for 30 Days, #60 1 Refill NS Fentanyl (Fentanyl) 25 Mcg Tdsy 25 MCG TD Q3D@1145 for 30 Days, #10 PATCH 0 Refills Oxycodone/Acetaminophen 10MG/325MG (Oxycodone/Acetaminophen 10MG/325MG) 1 Tab Tab 1 TAB PO Q4H PRN for Severe Pain for 10 Days, #40 TAB 0 Refills Discontinued Medications: Cephalexin Monohydrate (Keflex) 500 Mg Cap 500 MG PO QID for 7 Days, #28 CAP Hydrocodone/Acetaminophen 5MG/325MG ([place] 5MG/325MG) Tab 1 TABLET PO Q6H PRN for Pain, #10 TAB For Initial Treatment Discharge Exam A 10 system review was performed and all were negative. GEN: Awake, alert, and oriented x 3. Not in acute distress HEENT: Tm's intact, no inflammation, EOMI, PERRLA, MMM Neck: Soft, supple Lungs: CTA b/l, no r/r/w Heart: REG, nrl S1S2 without murmurs, rubs or gallops Abdomen: Soft, NT, ND, + BS EXT: No C/C/E. Right wrist has a dry and clean dressing in place around lower arm and wrist. NEURO: CN's II-XII grossly intact, non-focal Skin: warm, dry, no rashes PSYCH: pleasant, cooperative, no signs of significant anxiety or depression. Hospital Course 1) Right wrist and arm cellulitis secondary to puncture wound - IV Zosyn while in the hospital. At discharge switch to Levaquin 750mg daily for 14 days. 2) Right arm ascending lymphangitis 3) Right wrist abscess within the carpal tunnel 4) Flexor tenosynovitis of the FDS tendon, right. S/P I&D right wrist in the carpal tunnel - elevation of right lower arm, ROM exercises. 5) Pain control 6) Nicotine abuse - Nicotine patch DVT prophylaxis - TEDs and SCDs. Total Time Spent: Greater than 30 minutes This includes examination of the patient, discharge planning, medication reconciliation, and communication with other providers. Discharge Instructions Please refer to the electronic Patient Visit Report (Discharge Instructions) for additional information. Follow-Up PCP in 5-7 days Infectious disease, Jessee Low M.D. in 10-14 days Orthopedic surgery, Bandar Copeland M.D. - call office to inquire if hospital follow up is needed.
--- NOTE | 2016-12-15 20:56 | Infectious Disease Progress Nt ---
Progress Note Date of Service Dec 15, 2016. Subjective Pt evaluation today including: conversation w/ patient, physical exam, chart review, lab review, review of studies, conversation w/ garden consultant, review of inpatient medication list Patient feeling much better. Pain significantly improved. Remains afebrile. No new complaints. All Other Systems: Reviewed and Negative Medications Current Inpatient Medications Medications (Trade) Dose Ordered Sig/Ulises Route Start Time Stop Time Status Last Admin Dose Admin Acetaminophen (Tylenol Tab) 650 mg Q4H PRN PO 12/09/16 21:00 01/08/17 20:59 12/13/16 05:06 650 MG Zolpidem Tartrate (Ambien Tab) 5 mg HSZ PRN PO 12/09/16 21:00 01/08/17 20:59 Lorazepam (Ativan Inj) 0.5 mg Q4H PRN IV 12/09/16 21:00 01/08/17 20:59 Magnesium Hydroxide (Milk Of Magnesia Susp) 30 ml Q6H PRN PO 12/09/16 21:00 01/08/17 20:59 Diphenhydramine HCl (Benadryl Inj) 25 mg Q4H PRN IV 12/09/16 21:00 01/08/17 20:59 Al Hydrox/Mg Hydrox/ Simethicone 15 ml 15 ml Q4H PRN PO 12/09/16 21:00 01/08/17 20:59 Promethazine HCl/ Sodium Chloride (Phenergan Inj/ Nss 50ml) 50.5 ml @ 202 mls/hr Q4H PRN IV 12/09/16 21:00 01/08/17 20:59 Ondansetron HCl 4 mg 4 mg Q6H PRN IV 12/09/16 21:00 01/08/17 20:59 Lorazepam/Syringe (Ativan Inj/ Syringe) 1 ml @ 1 mls/min Q4H PRN IV 12/09/16 22:30 01/08/17 22:29 12/14/16 21:42 1 MLS/MIN Piperacillin Sod/ Tazobactam Sod (Consult) 1 ea UD PRN N/A 12/09/16 22:45 01/08/17 22:44 Docusate Sodium (coLACE CAP) 100 mg BID PO 12/10/16 21:00 01/09/17 20:59 12/13/16 09:53 100 MG Nicotine (Nicoderm Cq 21MG Patch) 1 patch QAM TD 12/11/16 09:00 01/10/17 08:59 12/13/16 09:55 1 PATCH Miscellaneous (Remove Nicoderm Patch) 1 ea HS N/A 12/11/16 21:00 01/10/17 20:59 12/13/16 21:22 1 EA Fentanyl (Duragesic Patch) 25 mcg Q3D@1145 TD 12/13/16 11:45 12/27/16 11:44 12/13/16 12:59 25 MCG Miscellaneous (Fentanyl Patch Remove & Waste) 1 ea Q3D@1144 N/A 12/13/16 11:44 01/12/17 11:43 12/13/16 11:44 1 EA Miscellaneous Information (Check Fentanyl Patch Placement) 1 ea QS N/A 12/13/16 16:00 01/12/17 15:59 12/15/16 16:01 1 EA Ketorolac Tromethamine (Toradol Inj) 30 mg Q6H PRN IV 12/13/16 11:15 12/18/16 11:14 12/15/16 20:29 30 MG Oxycodone/ Acetaminophen (Percocet 10-325MG Tab) 1 tab Q4H PRN PO 12/13/16 11:15 12/27/16 11:14 12/15/16 19:09 1 TAB Pantoprazole Sodium 40 mg 40 mg QAM PO 12/14/16 09:00 01/13/17 08:59 12/15/16 08:12 40 MG Piperacillin Sod/ Tazobactam Sod/ Dextrose (Zosyn Iv/D5 100ml) 115 ml @ 28.75 mls/ hr Q8H IV 12/14/16 08:00 12/24/16 07:59 12/15/16 16:00 28.75 MLS/HR Objective Vital Signs Date Time Temp Pulse Resp B/P Pulse Ox O2 Delivery O2 Flow Rate FiO2 12/15/16 16:15 Room Air 12/15/16 15:51 36.7 105 17 129/75 98 Room Air 12/15/16 08:15 Room Air 12/15/16 07:48 36.8 69 16 125/73 100 Room Air 12/14/16 23:55 Room Air 12/14/16 22:40 36.7 67 16 121/74 97 Room Air Physical Exam General Appearance: WD/WN, no apparent distress Eyes: normal inspection, EOMI, sclerae normal ENT: normal ENT inspection, pharynx normal Neck: supple, no adenopathy, trachea midline Respiratory/Chest: lungs clear, normal breath sounds, no respiratory distress Cardiovascular: regular rate, rhythm, no gallop, no murmur Abdomen: normal bowel sounds, non tender, soft, no organomegaly Extremities: non-tender, no calf tenderness Neurologic/Psychiatric: alert, oriented x 3 Skin: normal color, no rash, + pertinent finding (Right wrist and arm swelling and erythema improved) Lymphatic: no adenopathy Assessment and Plan Cellulitis and lymphangitis right wrist and arm, with small abscess on MRI, now status post debridement and drainage of abscess. Operative cultures growing Citrobacter and anaerobes. Suggest transition tomorrow to oral Rx if improving to Augmentin 875 mg bid, likely 7-10 days depending on clinical response.
[2016-12-15] MEDS: LORAZEPAM INJ 0.5 MG in SYRINGE 0.75 ML IV PRN (21:38)
[2016-12-15 22:50] VITALS: BP 120/71; PULSE 82; TEMP 36.7; O2SAT 99
[2016-12-16] MEDS: CHECK FENTANYL PATCH PLACEMENT SCH ×2 (00:26→07:16)
[2016-12-16] MEDS: PIPERACILL/TAZOBAC IV 3.375 GM in DEXTROSE 5% 100ML IV SCH ×2 (00:26→07:14)
[2016-12-16] MEDS: OXYCODONE/ACETAMINOPHEN 10/325MG TAB PO PRN ×2 (00:41→07:38)
[2016-12-16] MEDS: KETOROLAC TROMETHAMINE 30 MG/ML VIAL IV PRN (04:46)
[2016-12-16] MEDS: DOCUSATE SODIUM 100 MG CAP PO SCH (07:15)
[2016-12-16] MEDS: NICOTINE 21 MG/24 HR TDSY TD SCH (07:15)
[2016-12-16] MEDS: PANTOprazole SOD 40 MG TAB PO SCH (07:16)
[2016-12-16 07:21] LABS: MEAN CELL VOLUME 88.7 fL (80-100); MEAN CORPUSCULAR HEMOGLOBIN 29.8 pg (25-34); MEAN CORPUSCULAR HGB CONC 33.6 g/dl (32-36); MEAN PLATELET VOLUME 10.7 fL (7.4-10.4); PLATELET COUNT 159 K/uL (130-400); RED BLOOD COUNT 4.06 M/uL (4.7-6.1); WHITE BLOOD COUNT 6.88 K/uL (4.8-10.8)
[2016-12-16 07:27] VITALS: BP 120/71; PULSE 82; TEMP 36.7; O2SAT 99
[2016-12-16 07:55] LABS: CREATININE 1.2 mg/dl (0.60-1.40)
== END 2016-12-16 08:09 | disposition home or self-care (01) | DRG 501 ==
LOC: ENRESERVDT → ENRESERVTM → C.EDB 17:27 → C.MSN 20:48 → EDBEDREQSVC 21:06
PROVIDERS: ADMIT Hospitalist; ATTEND Hospitalist
PROC: 0R9 Upper Joints, Drainage (ICD-10-PCS; principal; 2016-12-11 07:30)
PROC: 0LB50ZZ Excision of Right Lower Arm and Wrist Tendon, Open Approach (ICD-10-PCS; principal; 2016-12-11 07:30)
DX: M65.131 Other infective (teno)synovitis, right wrist (principal); L02.413 Cutaneous abscess of right upper limb; S61.531A Puncture wound without foreign body of right wrist, initial encounter; W45.8XXA Other foreign body or object entering through skin, initial encounter; F17.200 Nicotine dependence, unspecified, uncomplicated; Z83.3 Family history of diabetes mellitus; Z82.49 Family history of ischemic heart disease and other diseases of the circulatory system; I89.1 Lymphangitis

== ENCOUNTER 2017-01-14 20:04 | Emergency (ER) | payer OTHER ==
[~2017-01-14] VITALS: Ht 195.6 cm; Wt 112.1 kg
[~2017-01-14 20:04] MED LIST changes: -CEPH500C PO; +DRGTP25 TD; -HYDR-5688 PO; +OXYC-88 PO; +SNK PO
[2017-01-14 20:10] VITALS: Ht 195.6 cm; Wt 112.1 kg
[2017-01-14] MEDS ORDERED: IBUP-1050 PO (20:20)
[2017-01-14] MEDS ORDERED: OXYC-106 PO (20:20)
[2017-01-14] MEDS ORDERED: NAPR-1169 PO (20:20)
[2017-01-14] MEDS ORDERED: ONDANSETRON INJ 2 MG/ML 2 ML VIAL IV STA (20:48)
[2017-01-14] MEDS ORDERED: MoRPHine SULFATE 4 MG/ML 1 ML CARP\\VIAL IV STA (20:48)
[2017-01-14] MEDS ORDERED: SODIUM CHLORIDE 0.9% 1000ML 1,000 ML IV ONE (21:00)
[2017-01-14 21:43] LABS: BLOOD UREA NITROGEN 17 mg/dl (7-18); BUN/CREATININE RATIO 17.8 (10-20); C-REACTIVE PROTEIN < 0.29 mg/dl (0-0.29); CALCIUM 8.9 mg/dl (8.5-10.1); CARBON DIOXIDE 25 mmol/L (21-32); CHLORIDE 111 mmol/L (98-107); CREATININE 0.94 mg/dl (0.60-1.40); GLUCOSE 121 mg/dl (70-99); POTASSIUM 3.5 mmol/L (3.5-5.1); SODIUM 143 mmol/L (136-145)
[2017-01-14 22:19] LABS: BASO % 0.3 %; BASO ABS # 0.03 K/uL (0-0.2); COMPLETE YES; HEMATOCRIT 37.9 % (42-52); IG% 0.2 %; LYMPH % 32.1 %; MEAN CELL VOLUME 85.2 fL (80-100); MEAN CORPUSCULAR HEMOGLOBIN 29.7 pg (25-34); MEAN CORPUSCULAR HGB CONC 34.8 g/dl (32-36); MEAN PLATELET VOLUME 11.5 fL (7.4-10.4); MONO % 5.8 %; NEUT % 58.6 %; PLATELET COUNT 190 K/uL (130-400); RED BLOOD COUNT 4.45 M/uL (4.7-6.1); WHITE BLOOD COUNT 9.97 K/uL (4.8-10.8)
[2017-01-14] MEDS ORDERED: PERCOCET HOME PACK PO ONE (23:00)
[2017-01-14 23:21] VITALS: BP 134/79; PULSE 90; TEMP 36.9; O2SAT 98
--- NOTE | 2017-01-16 01:29 | EMERGENCY ROOM VISIT NOTE ---
ED Visit Note First contact with patient: 20:19 Chief Complaint: Right wrist pain. History of Present Illness: Mr. Monahan is a 31-year-old white male who ambulates into the ED accompanied by his complaining of right wrist pain. Historically patient was admitted to the hospital on December 09 and was discharged on December 16 for a right carpal tunnel abscess and tenosynovitis resulting from a puncture wound. He reports he required surgery during his stay and he was discharged home and is as had 1 follow-up with Dr. Copeland, orthopedic hand specialist, and has been feeling better. He reports approximately 4 days ago he started increasing his workload at home including housework and taking care of his children and he started having return of pain. He reports initially was mild and now has gradually increased in intensity. Currently he describes a deep achy pain that becomes sharp with palpation in the area between the thenar and hypothenar eminence of the right wrist. He currently rates his discomfort 7/10. He denies radiation of his pain. His pain worsens with palpation and all movements of the wrist. He has not identified any alleviating factors related to the pain. He reports he finished his postop Percocet and has been using [id number] without relief of his discomfort. Associated with his symptoms he reports he has been intermittently feeling hot and chills and has noted some mild swelling and erythema over the area of the pain extending superiorly over the anterior forearm. He denies luz fevers, upper respiratory tract symptoms, shortness of breath, chest pain, abdominal pain, nausea, vomiting, decreased appetite, arm weakness/ numbness/tingling. Review of Systems: As noted above in history of present illness. 8 body systems were reviewed and found to be negative as noted above. Past Medical History: As previously noted and bronchitis. Current Medications: Ibuprofen, Aleve. Allergies to Medications: Patient denies. Social History: Patient is currently employed; he lives with his family and feels safe in his home environment; he admits to tobacco and alcohol use. Physical Examination: Vital Signs: Date Time Temp Pulse Resp B/P Pulse Ox O2 Delivery O2 Flow Rate FiO2 01/14/17 23:21 36.9 90 18 134/79 98 Room Air 01/14/17 20:10 37.3 102 18 141/86 97 Room Air GENERAL: 31-year-old male in mild distress due to pain, nontoxic-appearing, afebrile and hemodynamically stable. NEUROLOGICAL: Awake, alert and oriented to person, place and time. Answering questions appropriately and following commands. Normal gait. Good hand eye coordination. No focal motor sensory deficits. SKIN: Warm, dry and pink. No soft tissue eruptions or trauma noted. THORAX: Lungs sounds are clear to auscultation and equal bilaterally with symmetrical chest wall. ABDOMEN: Flat, soft and nontender. Positive bowel sounds in all quadrants. RIGHT UPPER EXTREMITY: No gross bony deformity. No tenderness throughout the elbow or proximal forearm. Mild tenderness starting at the mid forearm extending distally to the wrist and the proximal aspect of the hand. This area is minimally erythematous Lorenzo parents for the rest of the arm. It does slightly feel warm to the touch when compared to the rest of the arm. I do not appreciate any bony deformities, crepitus or ecchymosis. He does have full range of motion in flexion and extension of the elbow, pronation and supination of the forearm and flexion, extension and radial and ulnar deviation of the wrist. Patient's previous surgical site is clean dry and intact without signs of infection. Throughout the hand the skin was warm and pink and capillary refill is brisk. He was able to distinguish light sensations through all dermatomes of the hand. ED Course: Patient is assessed as noted above. Laboratory Testing: Test 01/14/17 21:00 01/14/17 21:18 Range/Units White Blood Count 9.97 4.8-10.8 K/uL Red Blood Count 4.45 4.7-6.1 M/uL Hemoglobin 13.2 14.0-18.0 g/dL Hematocrit 37.9 42-52 % Mean Corpuscular Volume 85.2 80-100 fL Mean Corpuscular Hemoglobin 29.7 25-34 pg Mean Corpuscular Hemoglobin Concent 34.8 32-36 g/dl Platelet Count 190 130-400 K/uL Mean Platelet Volume 11.5 7.4-10.4 fL Neutrophils (%) (Auto) 58.6 % Lymphocytes (%) (Auto) 32.1 % Monocytes (%) (Auto) 5.8 % Eosinophils (%) (Auto) 3.0 % Basophils (%) (Auto) 0.3 % Neutrophils # (Auto) 5.84 1.4-6.5 K/uL Lymphocytes # (Auto) 3.20 1.2-3.4 K/uL Monocytes # (Auto) 0.58 0.11-0.59 K/uL Eosinophils # (Auto) 0.30 0-0.5 K/uL Basophils # (Auto) 0.03 0-0.2 K/uL RDW Standard Deviation 42.6 36.4-46.3 fL RDW Coefficient of Variation 13.6 11.5-14.5 % Immature Granulocyte % (Auto) 0.2 % Immature Granulocyte # (Auto) 0.02 0.00-0.02 K/uL Erythrocyte Sedimentation Rate 3 0-14 mm/hr Sodium Level 143 136-145 mmol/L Potassium Level 3.5 3.5-5.1 mmol/L Chloride Level 111 98-107 mmol/L Carbon Dioxide Level 25 21-32 mmol/L Anion Gap 7.0 3-11 mmol/L Blood Urea Nitrogen 17 7-18 mg/dl Creatinine 0.94 0.60-1.40 mg/dl Est Creatinine Clear Calc Drug Dose 161.2 ml/min Estimated GFR () 126.5 Estimated GFR (Non- 109.1 BUN/Creatinine Ratio 17.8 10-20 Random Glucose 121 70-99 mg/dl Calcium Level 8.9 8.5-10.1 mg/dl C-Reactive Protein < 0.29 0-0.29 mg/dl Bedside Lactic Acid Venous 1.24 0.90-1.70 mmol/L Blood Cultures: Pending Patient was hydrated with normal saline and received 4 mg of morphine IV for pain and 4 mg of Zofran IV. Patient was reassessed multiple times during his stay in the emergency department. Patient's case was reviewed with Dr. Ragland; we agreed on diagnostic approach, treatment, disposition and plan. Patient's case was reviewed with Dr. Copeland, orthopedic hand specialist; he did not think additional testing or imaging studies were warranted at this time. He did recommend giving the patient 3 day course of Percocet and to keep his upcoming appointment in 3 days. Patient was placed in a wrist lacer splint. Patient was educated about tonight's findings and instructed on his treatment plan; he verbalizes understanding and agreement with this plan. Clinical Impression: Right wrist pain. Disposition: Patient discharged home in stable condition accompanied by his ; prior to departure he was reassessed and subjectively reported he was feeling the same. Plan: Comfort measures were discussed with the patient including splint use, ice, and a sliding pain medication scale of ibuprofen, acetaminophen or Percocet; appropriate narcotic precautions were discussed with the patient. Patient was encouraged to keep his upcoming appointment with his orthopedist. Patient was encouraged return to ED for uncontrolled pain, fevers, arm redness/ red streaking or any new/concerning symptoms.
== END 2017-01-14 23:24 | disposition home or self-care (01) ==
LOC: C.EDB 20:06 → C.EDD 23:24
DX: M25.531 Pain in right wrist (principal); F17.200 Nicotine dependence, unspecified, uncomplicated